=== PATIENT | male | born 1965 | race Caucasian/White ===

== ENCOUNTER 2019-08-26 10:48 | Outpatient (CLI) | payer BC, SELFPAY ==
--- NOTE | ~2019-08-26 | US_ITS ---
EXAMINATION:US venous doppler LE BI INDICATION:Lower extremity swelling and pain TECHNIQUE: Multiple grayscale, color flow and Doppler images of the lower extremity deep venous syste ms were obtained and reviewed. COMPARISON:No prior studies for comparison. FINDINGS: The common femoral, superficial femoral and popliteal veins demonstrate normal respiratory variation, augmentation and compressibility. Color flow is also seen within the posterior tibial, pe roneal, greater saphenous and profunda veins. IMPRESSION: 1: No lower extremity deep venous thrombosis. Reviewed, dictated and finalized at location A.
== END 2019-08-26 10:49 | disposition home or self-care (01) ==
PROVIDERS: PCP Family Medicine; Visit Provider Family Medicine
DX: R22.43 Localized swelling, mass and lump, lower limb, bilateral (principal)
CPT/HCPCS: 93970

== ENCOUNTER 2021-02-26 07:58 | Outpatient (CLI) | payer BC, SELFPAY ==
--- NOTE | 2021-02-26 08:00 | ECG_ITS ---
Measurements Intervals [place] Rate: 46 P: 42 KS: 289 QRS: 13 QRSD: 113 T: 13 QT: 442 QTc: 389 Interpretive Statements SINUS BRADYCARDIA WITH FIRST DEGREE AV BLOCK INCOMPLETE RIGHT BUNDLE BRANCH BLOCK BORDERLINE R WAVE PROGRESSION, ANTERIOR LEADS BASELINE ARTIFACT- I, III, AVR, AVL, AVF ABNORMAL ECG Electronically Signed On 02-26-2021 8:33:23 CDT by Andrew Doss D.O.
[2021-02-26 09:02] LABS: Anion Gap 8 mmol/L (8-16); Blood Urea Nitrogen 24 mg/dL (9-20); Calcium 9.7 mg/dL (8.4-10.2); Carbon Dioxide 30 mmol/L (22-30); Chloride 102 mmol/L (98-107); Estimated Glomerular Filt Rate > 60; Glucose 107 mg/dL (65-110); Potassium 4.2 mmol/L (3.4-5.0); Sodium 140 mmol/L (137-145)
== END 2021-02-26 07:59 | disposition home or self-care (01) ==
PROVIDERS: Anesthesiology; Visit Provider Podiatrist Foot & Ankle Surgery
DX: Z01.818 Encounter for other preprocedural examination (principal); I10 Essential (primary) hypertension; E78.5 Hyperlipidemia, unspecified; E11.9 Type 2 diabetes mellitus without complications; R94.31 Abnormal electrocardiogram [ECG] [EKG]
CPT/HCPCS: 36415; 80048; 93005

== ENCOUNTER 2021-03-01 03:11 | Day surgery (SDC) | payer BC, SELFPAY ==
[2021-02-21 10:11] VITALS: BMI 35.9
--- NOTE | ~2021-03-01 | XR_ITS ---
EXAMINATION: XR surgery orthopedic DATE: 03/01/2021 10:07 INDICATION: Left foot arthrodesis TECHNIQUE: 2 fluoroscopic images of the left forefoot were obtained during procedure performed by Dr. Carrera. Radiologist was not present for the imaging or procedure. The amount of fluoroscopy time u sed during this procedure was 0.6 minutes. COMPARISON: None. FINDINGS: First metatarsophalangeal arthrodesis with dorsal plate and screw fixation which appears chronic in s olidly bridged. Osteotomy at the neck of the second metatarsal with fixation with a pair of screws. E xpected small amount of postoperative gas projects over the second metatarsophalangeal joint space. O steotomy at the head of the fourth proximal phalanx and computed arthrodesis at the fourth proximal i nterphalangeal joint. A metallic fixation device spanning the lucent joint space demonstrates only a small amount of purchase within the remaining portion of the head of the proximal phalanx. Alignment appears near-anatomic. No fracture. IMPRESSION: 1. Fluoroscopy utilized during the procedure and the left forefoot including a likely shortening oste otomy at the neck of the second metatarsal and instrumented arthrodesis at the fourth proximal interp halangeal joint. Correlate with procedure note for further detail. 2. Chronic instrumented arthrodesis with solid osseous fusion at the first metatarsophalangeal joint. Reviewed, dictated and finalized at location A. IMPRESSION: 1. Fluoroscopy utilized during the procedure and the left forefoot including a likely shortening osteotomy at the neck of the second metatarsal and instrument ed arthrodesis at the fourth proximal interphalangeal joint. Correlate with pro cedure note for further detail. 2. Chronic instrumented arthrodesis with solid osseous fusion at the first meta tarsophalangeal joint.
[2021-03-01 07:00] VITALS: BP 117/62; PULSE 48; RESP 16; TEMP 36.3; O2SAT 96
[2021-03-01] MEDS: LACTATED RINGERS 1,000 ML 30 ML IV CONT (07:00)
[2021-03-01 07:33] LABS: Glucose Point of Care 98 mg/dl (65-105)
--- NOTE | 2021-03-01 07:39 | P.PNAN_ITS ---
Anes - Initial Pre Proc Eval Procedure: Operation Date: 03/01/21 08:30 Proposed Procedures p Arthrodesis First Metatarsal Phalangeal Joint Left Foot, Declan Shortening Second Metatarsal Osteotomy Left Foot, Excision Skin Lesion Left Foot - Felix Carrera JR, MD s Hammer Toe Repair Fouth Digit Left Foot - Felix Carrera JR, MD Date/Time: 03/01/21 07:39 Surgeon: Felix Carrera JR, MD Pre Op Diagnosis: Bunion Lt Foot, Hammertoe 4th Toe Lt Patient Data Age: 55 Gender: M Height: 1.93 m Weight: 133.81 kg Allergies Allergy/AdvReac Type Severity Reaction Status Date / Time No Known Allergies Allergy Verified 03/01/21 07:39 Home Medications Medication Instructions Recorded Confirmed Type lisinopril 40 mg PO DAILY 04/04/19 02/21/21 History atorvastatin 10 mg PO DAILY 02/21/21 02/21/21 History diclofenac sodium 75 mg PO BID PRN 02/21/21 03/01/21 History empagliflozin [Jardiance] 25 mg PO DAILY 02/21/21 02/21/21 History gabapentin 300 mg PO BID 02/21/21 02/21/21 History hydrochlorothiazide 12.5 mg PO DAILY 02/21/21 02/21/21 History metformin 500 mg PO DAILY 02/21/21 02/21/21 History sertraline 100 mg PO DAILY 02/21/21 02/21/21 History Laboratory Tests 03/01/21 07:29 POC Capillary Glucose 98 mg/dl mg/dl (65-105) Patient hx anesthesia problems: none Family hx anesthesia problems: none Results Review: All pre-operative results and documents have been reviewed as part of the pre-operative evaluation. [facility] Past Medical History Medical History (Updated 03/01/21 @ 07:40 by Sukhdeep Nicholas MD) Diabetes HTN (hypertension) Obesity KALLIE on CPAP Prostate CA Surgical History Surgical History (Updated 03/01/21 @ 07:40 by Sukhdeep Nicholas MD) H/O prostatectomy History of back surgery Social History Social History Smoking packs per day: 1 Smoking cigarettes per day: 20.0 Years smoked: 20 Smoking pack-years: 20.00 Smoking status: Former smoker Smoking end date: 05/11/12 Alcohol intake: current Alcohol use details: RARE Substance use: never Substance use type: does not use Living arrangements: with family Gender identity (if verbalized by the patient): Male Spiritual care concerns: No Anes - Eval Final PreProcedure Day of Procedure 03/01/21 07:39 Patient weight: obese Heart: regular rate and rhythm Lungs: clear to auscultation Airway: Mallampati scale class II Neurological: alert and oriented Last oral intake: >/= 8 hours ASA classification: III Emergent: no Anesthetic plan: proceed Anesthesia type and monitoring: general LMA and standard monitoring Results Review: All pre-operative results and documents have been reviewed as part of the pre-operative evaluation. Informed Consent: The patient's anesthetic plan and its attendant risks and benefits were discussed with the patient/family/POA. Questions were solicited and answers provided to the satisfaction of the patient/family/POA.
--- NOTE | 2021-03-01 08:02 | WPDHPUPDATE1 ---
History and Physical Update Update Date/Time: 03/01/21 08:02 History and Physical has been reviewed, including an updated exam of the patient. There are NO changes in the patient's condition. Risks, benefits, and alternatives have been discussed and questions answered. Patient agrees to proceed with procedure.
[2021-03-01] MEDS: ceFAZolin 3 GM/D5W 100 ML 100 ML IVPB (08:27)
[2021-03-01] MEDS: LIDOCAINE HCL 2% PF INJ 5 ML VIAL 20 ML INFILTRATE (09:04)
[2021-03-01 10:25] VITALS: BP 113/64; PULSE 46; RESP 16; O2SAT 94
[2021-03-01 10:30] LABS: Glucose Point of Care 121 mg/dl (65-105)
--- NOTE | 2021-03-01 10:30 | W.PM.PROC2 ---
Procedure Note - Detailed Date of Procedure 03/01/21 Pre-op Diagnosis 1. Arthritic bunion deformity left foot 2. Hammertoe deformity 4th digit left foot 3. Metatarsalgia second metatarsal phalangeal joint left foot 4. Painful skin lesion left foot Post-op Diagnosis same Procedure Performed 1. Arthrodesis of the first metatarsal phalangeal joint left foot 2. Hammertoe correction fourth digit left foot 3. Declan shortening 2nd metatarsal osteotomy left foot 4. Excision of skin left foot Surgeon Felix Carrera JR, DPM Anesthesia MAC and local Description of Procedure PROCEDURE IN DETAIL: Under mild sedation, the patient was brought into the operating room, placed on the operating table in supine position. A pneumatic ankle tourniquet was placed about the patient's ipsilateral ankle. Following IV sedation with LMA, a local anesthetic block was obtained about the proximal foot utilizing 20 cc of a 2% Lidocaine plain and 0.5% Marcaine plain. The foot was then scrubbed, prepped, and draped in the usual aseptic manner. An Esmarch bandage was then used to exsanguinate the patient's foot and the pneumatic ankle tourniquet was then inflated. Surgery began in the following manner: Attention was directed to the dorsal aspect of the 1st metatarsophalangeal joint where there was a large subcutaneous prominence noted along the dorsomedial aspect of the joint. The incision was made starting along the central shaft of the 1st metatarsal and extending just proximal to the interphalangeal joint of the hallux. The incision was continued deep down through the subcutaneous tissues using sharp and blunt dissection. All bleeders were cauterized as necessary. At this point, the dissection was continued down to the level of the periosteum and capsular structures overlying the 1st metatarsophalangeal joint. A full length periosteum and capsular incision was made just medial to the extensor hallucis longus tendon. The periosteum and capsular structures were freed from the base of the proximal phalanx as well as the distal 1st metatarsal. At this point, the 1st metatarsophalangeal joint was identified. There was almost complete loss of articular cartilage to the head of the 1st metatarsal as well as the base of the proximal phalanx. There was significant broadening and hypertrophy of the 1st metatarsophalangeal joint along with a large joint mouse atop the joint. Utilizing a sagittal bone saw, the hypertrophied 1st metatarsal was resected dorsally, medially, and laterally. A power bur was used to make sure that there were no rough edges and also to further debride the hypertrophic 1st metatarsal. Next, a rongeur was used to resect all hypertrophic base of the proximal phalanx. At this point, the sagittal saw blade was used to denude the degenerative cartilage from the head of the 1st metatarsal as well as the base of the proximal phalanx with great approximation noted. Next, a 2-0 drill bit was used to further fenestrate the head of the 1st metatarsal as well as the base of the proximal phalanx in order to allow fusion across the 1st metatarsophalangeal joint. Next, a 0.045 inch K-wire was driven from the medial aspect of the base of the proximal phalanx into the head of the 1st metatarsal in order to serve as temporary fixation. A large steel plate was used to make sure that the hallux was in a rectus position both in the sagittal plane as well as the frontal and transverse plane. Excellent position of the hallux was noted. Next, a CrossCHECK plate was placed atop the 1st metatarsophalangeal joint held in position with Peculiar wires. Utilizing standard principles and techniques, the 2 distal drill holes were drilled and two 3.5 mm fully-threaded locking screws were driven from dorsal to plantar holding the distal aspect of the plate intact. At this point, a 3.5mm lag screw was driven from dorsal distal to proximal plantar across the 1st metatarsophalangeal
[2021-03-01 10:55] VITALS: BP 113/53; PULSE 38; RESP 16; O2SAT 98
[2021-03-01 11:45] VITALS: BP 132/74; PULSE 44; RESP 16
[2021-03-01] MEDS: oxyCODONE HCL (*CRX) 5 MG TAB IR PO (12:12)
[2021-03-01 12:43] VITALS: BP 134/73; PULSE 44; RESP 16
== END 2021-03-01 12:30 | disposition home or self-care (01) ==
PROVIDERS: Visit Provider Podiatrist Foot & Ankle Surgery
PROC: (CPT 28750; principal; 2021-03-01 08:30)
PROC: (CPT 28285; 2021-03-01 08:30)
DX: M21.612 Bunion of left foot (principal); M20.42 Other hammer toe(s) (acquired), left foot; M77.42 Metatarsalgia, left foot; D22.72 Melanocytic nevi of left lower limb, including hip; E11.9 Type 2 diabetes mellitus without complications; I10 Essential (primary) hypertension; G47.33 Obstructive sleep apnea (adult) (pediatric); Z79.84 Long term (current) use of oral hypoglycemic drugs; Z85.46 Personal history of malignant neoplasm of prostate; E66.9 Obesity, unspecified; Z68.35 Body mass index [BMI] 35.0-35.9, adult; Z87.891 Personal history of nicotine dependence
CPT/HCPCS: 28285; 28308; 28755; 11420; 36415; 80048; 82948; 88305; 93005; A9270; C1713; J0690; J2704; J3010; J7120

== ENCOUNTER 2021-07-03 09:24 | Outpatient (CLI) | payer BC, SELFPAY ==
[2021-07-03 10:04] LABS: Anion Gap 5 mmol/L (8-16); Blood Urea Nitrogen 19 mg/dL (9-20); Calcium 9.6 mg/dL (8.4-10.2); Carbon Dioxide 30 mmol/L (22-30); Chloride 102 mmol/L (98-107); Estimated Glomerular Filt Rate > 60; Glucose 94 mg/dL (65-110); Sodium 137 mmol/L (137-145)
== END 2021-07-03 09:25 | disposition home or self-care (01) ==
LOC: ANHSURGERY 09:27
PROVIDERS: Anesthesiology; Visit Provider Podiatrist Foot & Ankle Surgery
DX: E11.9 Type 2 diabetes mellitus without complications (principal); Z01.818 Encounter for other preprocedural examination
CPT/HCPCS: 36415; 80048

== ENCOUNTER 2021-07-05 01:01 | Day surgery (SDC) | payer BC, SELFPAY ==
[2021-07-01 11:10] VITALS: BMI 36.5
--- NOTE | 2021-07-01 11:19 | PC.NURSE ---
Report to the Outpatient Waiting Room, entrance under the green pavilion located off [facility], at time 11:00 on date 07/05/21. OR Time: 1:00. - You and your visitor will be asked a series of questions to screen for COVID 19 for your protection. - A mask is required within the hospital. One visitor will be allowed to accompany the patient into the hospital. Patients visitor will be instructed to remain with patient at all times or leave the building. We will allow the visitor to come back to the postoperative area when patient is ready. Preoperative COVID Testing Requirements: No COVID Test needed if: (proof is required; if not received patient will have Rapid Test prior to entry) - Patient has received COVID Vaccine at least 14 days prior to procedure date or - Patient has positive COVID test result within last 90 days of surgery date. COVID Test needed if above criteria is not met Patients may have clear liquids (water, carbonated beverages, clear teas, apple juice) until 3 hours prior to surgery (10:00) with a maximum of 20 ounces. - No food from midnight until time of surgery Take the following medications with a SIP of water the morning of surgery: GABAPENTIN, SERTRALINE Medications to discontinue per physician: DICLOFENAC Date to take last dose: PER DR. FONTAINE Please no make-up, nail syriac, hairspray, perfume, deodorant, or body powder the day of surgery. No jewelry (including any body piercings) or valuables the day of surgery, leave them at home. Please take a shower or bath the night before, or the morning of, surgery with an antibacterial soap. Wear comfortable, loose fitting clothing. - Jewelry must be removed prior to entering the operating room. Rings and piercings that are not removed may be cut off. - The hospital will not accept responsibility for valuables. - Please leave all valuables, including medications, at home the day of surgery. If you are going home after surgery, a licensed charter and tour bus driver must drive you home. - NO public transportation without another adult. - We recommend that an adult stay with you for 24 hours following discharge. - We also recommend that you do not drive, make important decision, drink alcoholic beverages, or take any drugs that were not prescribed by your health care provider for at least 24 hours after your discharge time. Follow any additional instructions given to you from your surgeon. Telephone instructions given to BRYSON LANIER and asked if any additional questions and then verbalized understanding. Patient advised to call surgeon office or pre surgery nurse liaison [phone] if any additional questions.
--- NOTE | ~2021-07-05 | XR_ITS ---
EXAMINATION: XR surgery orthopedic DATE: 07/05/2021 13:39 INDICATION: Removal of painful instrumentation from the left foot TECHNIQUE: 2 fluoroscopic images of the left forefoot were obtained during procedure performed by Dr. Carrera. Radiologist was not present for the imaging or procedure. The amount of fluoroscopy time u sed during this procedure was 0.2 minutes. COMPARISON: 03/01/2021 FINDINGS: Again seen is a solidly fused left first metatarsophalangeal arthrodesis with dorsal plate and screw fixation. Increased callus formation at the neck of the second metatarsal consistent with healing of a shortening osteotomy with screw fixation. Interval osteotomy at the head of the third proximal phal anx. There also has been revision of an attempted fourth proximal interphalangeal joint arthrodesis w ith removal of the prior fixation device and placement of a new bidirectional screw spanning the stil l lucent joint space. There appears to been some loss of bone stock at the neck of the fourth proxima l phalanx which could represent either progressive osteolysis or revision osteotomy. No fracture. IMPRESSION: 1. Fluoroscopy utilized during orthopedic procedure at the left forefoot as detailed above. See proce dure note for further detail. Reviewed, dictated and finalized at location A. [employer] IMPRESSION: 1. Fluoroscopy utilized during orthopedic procedure at the left forefoot as det tamica above. See procedure note for further detail.
[2021-07-05] MEDS: LACTATED RINGERS 1,000 ML 30 ML IV CONT (12:00)
[2021-07-05] MEDS: ceFAZolin 3 GM/D5W 100 ML 100 ML IVPB (12:03)
[2021-07-05 12:26] LABS: Glucose Point of Care 95 mg/dl (65-105)
--- NOTE | 2021-07-05 12:42 | WPDHPUPDATE1 ---
History and Physical Update Update Date/Time: 07/05/21 12:42 History and Physical has been reviewed, including an updated exam of the patient. There are NO changes in the patient's condition. Risks, benefits, and alternatives have been discussed and questions answered. Patient agrees to proceed with procedure.
--- NOTE | 2021-07-05 12:47 | WPDANESEPPF ---
Anes - Initial Pre Proc Eval Procedure: Operation Date: 07/05/21 13:00 Proposed Procedures p Removal Painful Hardware Left Foot - Felix Carrera JR, MD s Arthroplasty Third Digit Left Foot - Felix Carrera JR, MD Date/Time: 07/05/21 12:47 Surgeon: Felix Carrera JR, MD Pre Op Diagnosis: painful hardware left foot, Patient Data Age: 55 Gender: M Height: 1.93 m Weight: 136.08 kg Allergies Allergy/AdvReac Type Severity Reaction Status Date / Time No Known Allergies Allergy Verified 07/05/21 12:46 Home Medications Medication Instructions Recorded Confirmed Type lisinopril 40 mg PO DAILY 04/04/19 07/05/21 History atorvastatin 10 mg PO DAILY 02/21/21 07/05/21 History diclofenac sodium 75 mg PO BID PRN 02/21/21 07/05/21 History gabapentin 300 mg PO BID 02/21/21 07/05/21 History hydrochlorothiazide 12.5 mg PO DAILY 02/21/21 07/05/21 History metformin 500 mg PO DAILY 02/21/21 07/05/21 History sertraline 100 mg PO DAILY 02/21/21 07/05/21 History semaglutide [Rybelsus] 7 mg PO DAILY 07/01/21 07/05/21 History Laboratory Tests 07/05/21 12:24 POC Capillary Glucose 95 mg/dl mg/dl (65-105) Patient hx anesthesia problems: none Family hx anesthesia problems: none Results Review: All pre-operative results and documents have been reviewed as part of the pre-operative evaluation. [facility] Past Medical History Medical History Diabetes HTN (hypertension) Obesity KALLIE on CPAP Prostate CA Surgical History Surgical History H/O prostatectomy History of back surgery Social History Social History Smoking packs per day: 1 Smoking cigarettes per day: 20.0 Years smoked: 20 Smoking pack-years: 20.00 Smoking status: Former smoker Tobacco type: cigarettes Smoking end date: 05/11/12 Alcohol intake: current Drinks per week: 2 Alcohol use details: RARE Substance use: never Substance use type: does not use Living arrangements: with family Gender identity (if verbalized by the patient): Male Sexual Orientation (if Verbalized by the Patient): Straight or Heterosexual Spiritual care concerns: No Anes - Eval Final PreProcedure Day of Procedure 07/05/21 12:47 Patient weight: obese Heart: regular rate and rhythm Lungs: clear to auscultation Airway: Mallampati scale class II Neurological: alert and oriented Last oral intake: >/= 8 hours ASA classification: III Emergent: no Anesthetic plan: proceed Anesthesia type and monitoring: general GIVS and standard monitoring Results Review: All pre-operative results and documents have been reviewed as part of the pre-operative evaluation. Informed Consent: The patient's anesthetic plan and its attendant risks and benefits were discussed with the patient/family/POA. Questions were solicited and answers provided to the satisfaction of the patient/family/POA.
[2021-07-05 12:52] VITALS: BP 132/69; PULSE 57; RESP 16; TEMP 36.6; O2SAT 99
--- NOTE | 2021-07-05 12:54 | WPDHPUPDATE1 ---
History and Physical Update Update Date/Time: 07/05/21 12:54 1. Removal of painful hardware left foot 2. Arthroplasty of the 3rd digit left foot
[2021-07-05] MEDS: BUPIVACAINE HCL 0.5% PF 30 ML VIAL 10 ML INFILTRATE (13:08)
[2021-07-05] MEDS: LIDOCAINE HCL 2% PF INJ 5 ML VIAL 10 ML INFILTRATE (13:08)
[2021-07-05 13:45] VITALS: BP 127/74; PULSE 50; RESP 15; O2SAT 92
--- NOTE | 2021-07-05 14:11 | W.PM.PROC2 ---
Procedure Note - Detailed Date of Procedure 07/05/21 Pre-op Diagnosis 1. Painful hardware left foot 2. Hammertoe 3rd digit left foot Post-op Diagnosis same Procedure Performed 1. Removal of painful hardware left foot 2. Arthroplasty 3rd digit left foot Surgeon Felix Carrera JR, MD Anesthesia MAC and local Indications Painful hardware left foot and painful 3rd digit left foot Description of Procedure Description of Procedure Under mild sedation, the patient was brought to the operating room, placed on the operating table in the supine position. A pneumatic ankle tourniquet was placed about the patient's ankle. Following monitored anesthesia care and a local anesthetic block witha one to one mixture of 2% Lidocaine plain and 0.5% Marcaine plain, the foot was then scrubbed, prepped, and draped in the usual aseptic manner. An Esmarch bandage was then used to examine the patient's foot and pneumatic ankle tourniquet was then inflated. Surgery began in the following manner. Attention was directed to the dorsal aspect of the left hallux. Utilzing fluoroscopy the loose screw was identified. A small one centimeter incision was made overlying the screw head. The screws was removed in toto and placed on the back table to be discarded. A post screw removal fluoroscopic image was taking to document that the screw was removed. The subcutaneous tissue was closed with 4-0 Vicryl. The skin was reapproximated and coapted with 4-0 Monocryl in running subcuticular suture fashion technique. Attention was directed to the third digit of the foot where a 2cm incision was made over the distal interphalangeal joint. A transverse tenotomy was created dorsal to the proximal interphalangeal joint, next the head of the proximal phalanx was freed of its capsular and tendinous structures and resected with an oscillating saw blade. I reapproximated the extensor tendon over the resected head of the proximal phalanx of the digit with 4.0 Vicryl. I reapproximated the subcutaneous structures with 4.0 Vicryl and the skin with 4-0 Monocryl in running subcuticular suture technique. Upon completion of the procedure, the incision was dressed with 1/4 steri strips, Adaptic, 4 x 4's, Kerlix, and Coban. The pneumatic ankle tourniquet was then deflated and a prompt hyperemic response noted to all digits of the foot. A surgical shoe was then applied. The patient did very well with the procedure and the anesthesia. The patient was transferred to the recovery room with vital signs stable and vascular status intact to all toes of the affected foot. Following a period of postoperative monitoring, the patient will be discharged home on the following written and oral postoperative instructions: 1. Keep the dressing clean, dry, and intact. Use a cast protector bag with showers. 2. The patient should use a surgical shoe for ambulation postoperatively. 3. The patient should be on bedrest with bathroom privileges and elevate the affected foot when at rest. 4. The patient to contact Dr. Carrera for all postop care and if any problems arise. 5. Prescriptions were written for Percocet 5/325 dispensed 40 to be taken 1 p.o. q.4 to 6 hours as needed for severe pain. 6. Take one Aspirin 325mg every 24hours for two weeks post operatively. Estimated Blood Loss -1.0
[2021-07-05 14:15] VITALS: BP 136/88; PULSE 47; RESP 15; O2SAT 95
[2021-07-05] MEDS: oxyCODONE HCL (*CRX) 5 MG TAB IR PO (14:28)
[2021-07-05 14:42] VITALS: BP 149/83; PULSE 55; RESP 15
[2021-07-05 15:10] VITALS: BP 135/66; PULSE 51; RESP 17
--- NOTE | 2021-07-05 15:17 | SUR.PHASEII ---
1515- Dr Carrera here. Spoke with pt. Gave a paper prescription for Percocet.
== END 2021-07-05 15:19 | disposition home or self-care (01) ==
PROVIDERS: Visit Provider Podiatrist Foot & Ankle Surgery
PROC: (CPT 28285; principal; 2021-07-05 13:00)
PROC: (CPT 28285; 2021-07-05 13:00)
DX: T84.84XA Pain due to internal orthopedic prosthetic devices, implants and grafts, initial encounter (principal); Y83.8 Other surgical procedures as the cause of abnormal reaction of the patient, or of later complication, without mention of misadventure at the time of the procedure; M20.42 Other hammer toe(s) (acquired), left foot; E11.9 Type 2 diabetes mellitus without complications; I10 Essential (primary) hypertension; G47.33 Obstructive sleep apnea (adult) (pediatric); Z85.46 Personal history of malignant neoplasm of prostate; E66.9 Obesity, unspecified; Z68.35 Body mass index [BMI] 35.0-35.9, adult; Z79.84 Long term (current) use of oral hypoglycemic drugs; Z87.891 Personal history of nicotine dependence
CPT/HCPCS: 28285; 20680; 36415; 80048; 82948; A9270; J0690; J2250; J2405; J2704; J3010; J7120

== ENCOUNTER 2023-03-16 11:32 | Emergency (ER) | payer OTHER, SELFPAY ==
[2023-03-16 11:38] VITALS: BP 116/74; PULSE 58; RESP 16; TEMP 36.7; O2SAT 99
--- NOTE | 2023-03-16 12:13 | ED.GENADULT ---
HPI - General Adult General Chief complaint: Neck Pain/Injury Stated complaint: Neck pain Time Seen by Provider: 03/16/23 12:10 Source: patient, RN notes reviewed and old records reviewed Mode of arrival: ambulatory Limitations: no limitations History of Present Illness HPI narrative: 57-year-old male presents to the [facility] with lateral neck pain, both right and left. Has been going on for 2 weeks. Patient states he has tried creams, patches, hot cold packs. States it is more of a pulling sensation, not a sharp pain. No midline tenderness. Denies any injury. Is able to move head up and down states he has pain from side to side. Pain radiates into the trapezius muscle bilateral. No midline tenderness. No numbness or tingling in extremities. Denies any fevers. Walks with a normal gait. No loss retention of bowel or bladder. Patient is requesting a pain shot. States when [facility]. Attempted to find it will kind of shot he gets, patient unsure. Works as a business investor. Onset (ago): week(s) (2) Treatments prior to arrival: cold therapy, heat therapy and other (Creams and patches) Related Data Home Medications Medication Instructions Recorded Confirmed lisinopril 40 mg tablet 40 mg PO DAILY 04/04/19 03/16/23 atorvastatin 10 mg tablet 10 mg PO DAILY 02/21/21 03/16/23 diclofenac sodium 75 mg 75 mg PO BID PRN Pain 02/21/21 03/16/23 tablet,delayed release hydrochlorothiazide 12.5 mg tablet 12.5 mg PO DAILY 02/21/21 03/16/23 metformin 500 mg tablet 500 mg PO DAILY 02/21/21 03/16/23 sertraline 100 mg tablet 100 mg PO DAILY 02/21/21 03/16/23 Allergies Allergy/AdvReac Type Severity Reaction Status Date / Time No Known Allergies Allergy Verified 03/16/23 11:40 Review of Systems Review of Systems: All systems reviewed & are unremarkable except as noted in HPI and below Constitutional: Constitutional: Reports no additional constitutional complaints Eyes: Eyes: Reports no additional eye complaints ENT: Reports system reviewed and no additional complaints, except as documented Cardiovascular: Cardiovascular: Reports no additional cardiovascular complaints, Denies chest pain and Denies dyspnea Respiratory: Respiratory: Reports no additional respiratory complaints, Denies chest congestion, Denies cough and Denies dyspnea Gastrointestinal: Gastrointestinal: Reports no additional gastrointestinal complaints, Denies abdominal pain, Denies nausea and Denies vomiting Musculoskeletal: Musculoskeletal: Reports as per HPI Integumentary/Breasts: Skin/Breast: Reports system reviewed and no additional complaints, except as docu Neurologic: Reports system reviewed and no additional complaints, except as documented Psychiatric: Psychiatric: Reports no additional psychiatric complaints Allergic/Immunologic: Allergic/Immunologic: Reports no additional allergic/immunologic complaints PMFSH Past Medical History Medical History Diabetes HTN (hypertension) Obesity KALLIE on CPAP Prostate CA Surgical History Surgical History H/O prostatectomy History of back surgery Social History Social History Smoking packs per day: 1 Smoking cigarettes per day: 20.0 Years smoked: 15 Smoking pack-years: 15.00 Smoking status: Former smoker Tobacco type: cigarettes Smoking end date: 05/11/15 Alcohol intake: current Drinks per week: 2 Alcohol use details: RARE Substance use: never Substance use type: does not use Living arrangements: with family Gender identity (if verbalized by the patient): Male Sexual Orientation (if Verbalized by the Patient): Straight or Heterosexual Spiritual care concerns: No Comments At the time of my signature, I reviewed and agree with the nursing past medical, surgical,
== END 2023-03-16 12:26 | disposition home or self-care (01) ==
PROVIDERS: Emergency Provider Nurse Practitioner; PCP Hospitalist
DX: S16.1XXA Strain of muscle, fascia and tendon at neck level, initial encounter (principal); X58.XXXA Exposure to other specified factors, initial encounter; Z79.84 Long term (current) use of oral hypoglycemic drugs; E11.9 Type 2 diabetes mellitus without complications; I10 Essential (primary) hypertension; Z47.33 Aftercare following explantation of knee joint prosthesis; E66.9 Obesity, unspecified; Z68.37 Body mass index [BMI] 37.0-37.9, adult; Z85.46 Personal history of malignant neoplasm of prostate; Z90.79 Acquired absence of other genital organ(s); Z87.891 Personal history of nicotine dependence
CPT/HCPCS: 99213; G0463

== ENCOUNTER 2024-08-12 19:38 | Observation (INO) | payer OTHER, SELFPAY ==
--- NOTE | ~2024-08-12 | CT_ITS ---
CLINICAL INDICATION: Personal history of prostate cancer with lower back pain and left lower quadrant pain COMPARISON: None. TECHNIQUE: Multiple contiguous axial images of the abdomen and pelvis were performed following the ad ministration of with 100 mL Omnipaque-350 intravenous contrast The dose-length product (DLP) was 1825.13 mGy-cm. Automated exposure control and iterative reconstruction technique were employed. FINDINGS/OBSERVATIONS: Visualized lower thorax: The bilateral lung bases are clear. The heart is enlarged, without pericardial effusion. Small hiatal hernia is present. Liver: The liver demonstrates homogeneous enhancement and is not enlarged. Gallbladder and biliary system: The gallbladder is only minimally distended, and otherwise unremarkable. Pancreas: The pancreas enhances homogeneously without ductal dilatation. Spleen: The spleen enhances homogeneously and is not enlarged. Kidneys: The bilateral kidneys enhance symmetrically without hydronephrosis or renal calculi. Adrenal glands: Unremarkable. Gastrointestinal tract: Colonic diverticulosis without surrounding inflammatory change. Appendix: The air-filled appendix is of normal caliber (axial series, images 110 through 129). Vasculature: Unremarkable. Lymph nodes: No pathologically enlarged or morphologically suspicious lymph nodes within the retroperitoneum or at the root of the mesentery. Pelvic structures: The bladder is distended, and otherwise unremarkable. The prostate gland is not enlarged. Body wall and musculoskeletal: Nonobstructing fat and bowel containing umbilical and supraumbilical hernias. No lytic or blastic lesions within the visualized osseous structures. There are bridging endplate osteophytes at multiple levels in the spine, consistent with diffuse idio pathic skeletal hyperostosis (DISH). Only trace degenerative disease at the level of L5/S1 with disc space narrowing and endplate sclerosi s. No acute or subacute fractures are present. IMPRESSION: Degenerative disease within the lower lumbar spine without lytic or blastic lesions within the visual ized osseous structures. No acute findings within the abdomen or pelvis, as detailed above. Reviewed, dictated and finalized at location A. IMPRESSION: Degenerative disease within the lower lumbar spine without lytic or blastic les ions within the visualized osseous structures. No acute findings within the abdomen or pelvis, as detailed above.
--- NOTE | ~2024-08-12 | MR_ITS ---
EXAMINATION: MR lumbar spine wo/w con DATE: 08/13/2024 12:40 INDICATION: Intractable low back pain. TECHNIQUE: Magnetic resonance imaging (MRI) of the lumbar spine was performed without intravenous con trast. Sequences included sagittal T2-weighted FSE, sagittal T2-weighted FS FSE, sagittal T1-weighted FSE, and axial T2-weighted FSE. COMPARISON: None FINDINGS: 6 degrees lumbar levocurvature. Sagittal alignment is normal. Vertebral body heights are normal. T1 h yperintense hemangioma at T12. Minimal fibrovascular degenerative endplate changes along superior end plate of T12, the posterior inferior endplates of L2 and L3 and the anterior superior endplate of L5. Marrow signal is otherwise unremarkable. Disc desiccation and mild disc height loss at L3-L4 and L5- S1 with minimal disc height loss at L2-L3 and L4-L5. There are annular fissures at each of these leve ls. The conus medullaris terminates at L1. There is normal signal in the caudal spinal cord. No abnor mal enhancing lesions identified. Paravertebral soft tissues are unremarkable. The following disc lev els are specifically discussed: T12-L1: The disc does not extend beyond the endplate margin. There is mild right and moderate left fa cet joint osteoarthritis. There is no neural foraminal stenosis. There is no central canal stenosis. L1-L2: The disc does not extend beyond the endplate margin. There is mild to moderate bilateral facet joint osteoarthritis. There is no neural foraminal stenosis. There is no central canal stenosis. L2-L3: Disc is bulging. There is mild hypertrophy of the ligamentum flavum. There is mild to moderat e bilateral facet joint osteoarthritis. There is mild bilateral neural foraminal stenosis. There is m ild central canal stenosis. L3-L4: Disc is bulging. There is mild hypertrophy of the ligamentum flavum. There is moderate bilater al facet joint osteoarthritis. There is mild to moderate bilateral neural foraminal stenosis. There i s mild central canal stenosis. L4-L5: Disc is bulging. There is mild is hypertrophy of the ligamentum flavum. There is moderate left and severe right facet joint osteoarthritis. There is mild to moderate bilateral neural foraminal st enosis. There is mild central canal stenosis. L5-S1: Disc is bulging. There is mild hypertrophy of the left ligamentum flavum with postoperative ch jayna of prior right hemilaminotomy. There is severe bilateral facet joint osteoarthritis. There is mi ld to moderate left and moderate right neural foraminal stenosis. There is no central canal stenosis. IMPRESSION: 1. Mild lumbar spondylosis change of prior right hemilaminotomy at L5-S1. Reviewed, dictated and finalized at location A.
--- OUTSIDE RECORDS SUMMARY | 2024-08-12 19:40 | XMS_ITS | Encounter Summary ---
Author Organization [facility] Healthcare Address [address] [place] [address] Care Team Providers Care Manager Installation Name Role Phone Roque Bhandari MD, [place] Manuel Moseley Primary Care Provide r Reason for Referral * Consultation (Routine) - Pending Review Specialty Diagnoses / Procedures Referred By Contac t Referred To Contact Pain Management Diagnoses Chronic bilateral low back pain without sciatica [place] Manuel Nevarez Jr., MD [address] [place] [id number] Phone: tel: fax: Terence Bush MD [address] [place] [address] Phone: tel: fax: Referral ID Status Reason Start Date Expiration Date Visits Requested Visits Authorized [id number] Pending Review Specialty Services Required 08/12/2024 09/11/2025 1 1 Question Answer Please select the performing region: External Order [171] To loc/pos [facility] [[id number]] To provider: TERENCE BUSH [[id number]] # of visits: 1 Reason for Visit * Reason Onset Date Comments Recommendation Request 08/12/2024 Encounter Details Date Type Department Care Team ([facility] st Contact Info) Description 08/12/2024 Telephone [facility] Primary Care [address] [place] [phone] [place] Manuel Nevarez Jr., MD [address] [place] [id number] Recommendation Request Social History Tobacco Use Types Packs/Day Years Used Date Smoking Tobacco: Former Smokeless Tobacco: Never AUDIT-C Answer Date Recorded Q1: How often do you have a drink containing alc ohol? Monthly or less 02/12/2024 Q2: How many drinks containi ng alcohol do you have on a typical day when you are drinking? 1 or 2 02/12/2024 Q3: How often do you have si x or more drinks on one occasion? Never 02/12/2024 PHQ-2 Answer Date Recorded PHQ-2 Total Score (If total score is 3 or more points, staff should administer the PHQ-9) 0 03/23/2024 PHQ-9 Answer Date Recorded PHQ-9 Total Score 7 09/23/2023 Personal Safety Answer Date Recorded Have you ever been in or are you currently in a harmful physical or emotional relationship or is someone making you feel afraid or unsafe? Denies 02/15/2024 Sex and Gender Information Value Date Recorded Sex Assigned at Not on file Legal Sex Male 6:34 AM [employer] Gender Identity Not on file Sexual Orientation Not on file documented as of this encounter Miscellaneous Notes * Telephone Encounter - Lani Talley MA - 08/12/2024 4:22 PM CDT Pain management referral placed patient notified * Telephone Encounter - Sarhai Almazan - 08/12/2024 2:37 PM CDT Recommendation Request Note: This request is for a specialty recommendation, not an insurance referral. Specialty: pain management Why does the patient want to go to this specialist? Back pain Additional Comments/Concerns: Patient states he has talked to Dr. Nevarez about pain before. He said he wants to go to one in [place], but couldn't give me any information on it. Does message need to be routed? Yes-Action Needed documented in this encounter Plan of Treatment Scheduled Referrals Name Type Priority Associated Diagnoses Order Schedule Ambulatory referral to Pain Management Outpatient Referral Routine Chronic bilateral low back pain without sciatica Expected: 08/12/2024 (Approximate), Expires: 08/12/2025 documented as of this encounter Visit Diagnoses Diagnosis Chronic bilateral low back pain without sciatica- Primary documented in this encounter Care Teams Manager Installation Relationship Specialty Start Date End Date [place] Manuel Nevarez Jr., MD [address] [place] [id number] PCP - General Internal Medicine 02/04/21 documented as of this encounter
--- OUTSIDE RECORDS SUMMARY | 2024-08-12 19:40 | XMS_ITS ---
Author Organization [facility], Address [address] [facility] [address] [place] [address] Care Team Providers Care Phys Asst Name Role Phone [place] Manuel Nevarez Primary Care Provider Unavailab Radames Alexander Unavailable [phone] RESULTS Component Value Reference Range Notes Thoracic and Lumbar MRI with out contrast Reviewed date:05/03/2024 08:31:30 AM Interpretation:completed Performing Lab: Notes/Report: completed REASON FOR VISIT next steps Encounters Encounter Location Date Provider Diagnosis [facility] [address] [facility] [address] [place] [address] 04/28/2024 Radames Milian Other low back pain M54.59 and Thoracic back pain M54.6 ASSESSMENTS Encounter Date Diagnosis Assessment Notes Treatment Notes Treatment Clinical Notes 04/28/2024 Other low back pain (ICD-10 - M54.59) 04/28/2024 Thoracic back pain (ICD-10 - M54.6) PLAN OF TREATMENT No Information
--- OUTSIDE RECORDS SUMMARY | 2024-08-12 19:41 | XMS_ITS | Data Portability ---
Author Organization [place] - [facility] [employer], Main Office Address [address] [place] [address] Care Team Providers Care Cosmetology Instructor Name Role Phone CARLOS EPSTEIN Primary Care Provider CARLOS EPSTEIN Referring Provider Assessment Encounter Date Assessment Date Assessment LastModified by Organization Details LastModified Time 08/14/2022 08/14/2022 Patient returns shoulder pain right. He presents with an MRI that shows a substantial tear about a quarter-sized. I think that he needs to have this fixed and sooner would be better than later. I did caution if he waits too long that it might be repairable. He can not hardly get his arm up to the horizontal. He is going to look for some time to do his surgery we discussed this risks benefits limitations and alternatives in the meantime he wanted another shot this was done with 20 mg Kenalog 4 cc 1% lidocaine. For his arthritic left knee he would like an injection and this has helped in the past he has got some degenerative changes and wearing the x-ray has some catching as well. This was done 20 mg Kenalog 4 cc 1% lidocaine. irvin Not available 08/14/2022 14:49:17 10/07/2022 10/07/2022 Patient has righ t shoulder pain due to rotator cuff tendon tear and impingement. He also has moderately severe primary osteoarthritis in both knees left knees feeling good today he would like the right knee injected. Therefore under sterile conditions I injected the patient's right shoulder subacromial space and the patient's right knee joint in the office with 4 cc 0.5% ropivacaine and 20 mg of Kenalog each. The patient tolerated procedure well. I will see him back as needed we talked about getting his shoulder fixed sooner than later to avoid worsening rotator cuff tendon tearing. He is going to consider shoulder surgery for later this year he will call us when he is ready he voiced understanding and agrees above plan. Not available 10/07/2022 16:59:25 01/01/2023 01/01/2023 The patient has moderately severe primary osteoarthritis both knees today the left knee is bothering him. He also has rotator cuff tendon tear right shoulder which is near full-thickness he has impingement and tendinitis. At his request under sterile conditions I injected the patient's right shoulder subacromial space and left knee joint in the office with 4 cc 0.5% ropivacaine and 20 mg of Kenalog each. The patient tolerated procedure well. I will see him back as needed. We did talk about the fact that if he lets his rotator cuff tendon tear go too long it could develop into a full thickness very large tear and that he should consider surgical intervention probably sooner than much later. He voiced understanding he is going to think about it he will call for any further problems difficulties or questions. Not available 01/01/2023 15:33:23 03/20/2023 03/20/2023 Patient has recent right knee pain due to mild primary osteoarthritis. He does have some mild narrowing symmetric in nature medially and laterally as well as the patellofemoral articulation. The left knee looks much worse than the right however his left knee feels good after previous treatment he would like to try a shot of cortisone in the right knee today. Therefore under sterile conditions I injected the patient's right knee joint in the office with 4 cc 0.5% bupivacaine and 20 mg of Kenalog. Patient tolerated the procedure well. He will continue with his anti-inflammatory medication if his symptoms worsen or change he is instructed to call. Patient also has some chronic issues with his right shoulder however he is not having too much pain today I told him we really should not do a shot of cortisone particular if he is not hurting he has chronic near full-thickness tearing of the rotator cuff tendon I have advised him multiple cortisone injections may weaken the tendon to the point of rupture or if he does decide to proceed with surgery he has a higher risk of failure of the surgical repair. For now we will take a wait and see approach I offered him formal physical therapy and states he has done it before he declined. We will see him back as needed for this he voiced understanding agrees above plan call for any further problems difficulties or questions. Not available 03/20/2023 15:06:12 Plan of Treatment Reminders Order Date Submit Date Provider Last Modified By Organization Details Last Modified Time Details Appointments None recorded. Lab None recorded. Referral None recorded. Procedures injection/a spiration joint/bursa (PROC) 2022 023 [email or web address] In-Office Order, Internal Use Only DO Not Attach Compendium DO Not Attach Compendium, Do Not Delete/merge, [id number] 3 14:19:33 injection/a spiration joint/bursa (PROC) - in office procedure, administere d by provider 2022 023 [email or web address] In-Office Order, Internal Use Only DO Not Attach Compendium DO Not Attach Compendium, Do Not Delete/merge, [id number] 3 15:10:11 injection/a spiration joint/bursa (PROC) - in office procedure, administere d by provider 2022 023 [email or web address] In-Office Order, Internal Use Only DO Not Attach Compendium DO Not Attach Compendium, Do Not Delete/merge, [id number] 3 15:10:11 injection/a spiration joint/bursa (PROC) - in office procedure, administere d by provider 2022 023 [email or web address] In-Office Order, Internal Use Only DO Not Attach Compendium DO Not Attach Compendium, Do Not Delete/merge, [id number] 3 14:47:34 injection/a spiration joint/bursa (PROC) - in office procedure, administere d by provider 2022 023 [email or web address] In-Office Order, Internal Use Only DO Not Attach Compendium DO Not Attach Compendium, Do Not Delete/merge, [id number] 3 14:47:34 injection/a spiration joint/bursa (PROC) - in office procedure, administere d by provider 2022 023 [email or web address] In-Office Order, Internal Use Only DO Not Attach Compendium DO Not Attach Compendium, Do Not Delete/merge, [id number] 3 14:23:45 injection/a spiration joint/bursa (PROC) - in office procedure, administere d by provider 2022 023 [email or web address] In-Office Order, Internal Use Only DO Not Attach Compendium DO Not Attach Compendium, Do Not Delete/merge, [id number] 3 14:14:08 Surgeries None recorded. Imaging XR, knee 2022 023 [email or web address] [facility] [place], [address], [place], [address], 3 15:16:18 Medication Orders bupivacaine HCl 0.5 % (5 mg/mL) injection solution 2022 023 [facility], [address], [place], [phone], 3 15:16:18 Kenalog 10 mg/mL suspension for injection 2022 023 [email or web address] [facility], [address], [place], [id number], 3 15:16:18 Kenalog 10 mg/mL suspension for injection 2022 023 [facility], [address] [place], [address], 3 15:43:03 ropivacaine (PF) 5 mg/mL (0.5 %) injection solution 2022 023 [email or web address] [facility], [address] [place], [address], 3 15:43:03 Kenalog 10 mg/mL suspension for injection 2022 023 [facility], [address] [place] [address], [address], 3 15:43:03 ropivacaine (PF) 5 mg/mL (0.5 %) injection solution 2022 023 [email or web address] [facility], [address] [place] [address], [address], 3 15:43:03 Kenalog 10 mg/mL suspension for injection 2022 023 [place] [address] [facility], [address] [place] [address], [address], 3 16:05:45 ropivacaine (PF) 5 mg/mL (0.5 %) injection solution 2022 023 [place] [address] [facility], [address] [place] [address], [address], 3 16:05:45 Kenalog 10 mg/mL suspension for injection 2022 023 [place] [address] [facility], [address] [place] [address], [address], 3 16:05:45 ropivacaine (PF) 5 mg/mL (0.5 %) injection solution 2022 023 [place] [address] [facility], [address] [place] [address], [address], 3 16:05:45 Kenalog 10 mg/mL suspension for injection 2022 023 [address] 158 [facility], [address] [place] [address], [address], 3 14:46:46 ropivacaine (PF) 5 mg/mL (0.5 %) injection solution 2022 023 [address] 158 [facility], [address] [place] [address], [address], 3 14:46:46 Kenalog 10 mg/mL suspension for injection [address], [address] [place], [address], 3 14:19:05 ropivacaine (PF) 5 mg/mL (0.5 %) injection solution 2022 023 [facility] 158 [facility], [address] [place], [address], 3 14:19:05 Patient TargetsNo targets recorded. Patient InstructionsNo instructions recorded. Reason for Referral None Reported. Results Created Date Observation Date Name Description Value Unit Range Abnormal Flag Note LastModifiedBy Organization Detail LastModifiedTime 05/20/19 23 XR, erin rainey, 2 or more view No observ ation record ed. [id number] [facility] [place] [address], [place], [address], 07/09/2022 01:25:44 08/14/19 23 MRI, erin rainey, w/o contr ast [facility] [address] [address] Patien t Name: BRYSON LANIER Access ion #: [id number] Sex: M : 1965 Locati on: IND Attend ing Physic melo: Soila urbina Physic melo: JOSE STEPHENSON Exam Date: 08/14/19 8:14 AM Exam Name: MRI SHOULD ER RT WO Admitt ing Diagno sis(es ): RADIOL OGY REPORT - FINAL EXAM: MRI SHOULD ER RT WO HISTOR Y: pain COMPAR EDDIE: None Availa ble. TECHNI QUE: Multip lanar multis equenc e imagin g of the right should er is perfor med withou t intrav enous contra st. Axial: GRE, Andrea l: T1, T2, Fat Sep G, Sagita l: T2, Fat Sep G, Axial: Recruiting Specialist al rotati on T2, Sagita l: Recruiting Specialist al rotati on T2. FINDIN GS: Osseou s:Unre markab le Joint space: Unrema rkable Page 1 of 2 [facility] Patien t Name: BRYSON LANIER Access ion #: [id number] Sex: M : 1965 Exam Date: 08/14/19 8:14 AM Exam Name: MRI SHOULD ER RT WO Admitt ing Diagno sis(es ): Labrum :Gross ly intact AC-onel nt:AC joint hypert rophic change s with subacr omial outlet narrow ing Rotato r cuff:T here is high-g rade partia l-thic kness tear of the nonart icular surfac e of the supras pinatu s tendon , this may be functi oning as a full-t hickne ss tear. Bicipi silvana labral tendon :Incom pletel y evalua juan m IMPRES DEMETRIO: See above. Create d and electr onical ly signed by: Richmond rosas MD Signed Date: 08/14/19 6:22 PM (CT) Dictat ed by: Richmond rosas MD (CT) (CT) Page [address] (Imaging) [address] [place], [address], 08/14/2022 08:40:30 08/15/19 23 08/13/2022 MRI, shoul brigid, w/o contr ast No observ ation record ed. [email or web address] Not Available 2022 08:58:18 03/20/20 XR, knee No observ ation record ed. [email or web address] [facility] [place] [address], [place], [address], 03/20/2023 15:07:04 Result Notes None recorded. Problems Name Problem SNOMED Code Status Onset Date Resolution Date Notes Provider Name and Address Organization Details Recorded Time Bilateral osteoarth ritis of knees 72432522731 9107 Active 2021 Not Available [facility] 3 01:07:15 Bilateral knee pain Active 2019 Not Available [facility] 3 01:07:15 Bilateral knee pain Completed 201803/22/2019 Not Available [facility] 3 01:07:15 Pain in left sacroilia c joint 41550652686 546540 Active 2021 Not Available [facility] 3 01:07:15 Nocturia 891379533 Completed Not Available [facility] 3 01:07:15 Pain of left shoulder joint 58583343387 747366 Active 2022 Not Available [facility] 3 01:07:15 Pain of right shoulder joint 25718429250 850644 Active 2021 Not Available [facility] 3 01:07:16 Pain of left elbow joint 26503870832 607745 Completed 201803/07/2019 Not Available [facility] 3 01:07:16 Snoring symptoms 373308517 Active Not Available [facility] 3 01:07:16 Blood urea outside reference range 259314106 Completed 201803/07/2019 Not Available [facility] 3 01:07:16 Partial thickness rotator cuff tear 919052411 Active 2021 Not Available [facility] 3 01:07:16 Full thickness rotator cuff tear 505022255 Active 2022 Not Available [facility] 3 01:07:16 Full thickness rotator cuff tear 226029531 Active 2022 Not Available [facility] 3 01:07:16 Periphera l venous insuffici ency 76924055 Active Not Available [facility] 3 01:07:16 Lumbar spondylos is 381720998 Active 2021 Not Available [facility] 3 01:07:16 Carcinoma of prostate 546173459 Active 2019 Not Available [facility] 3 01:07:17 Carcinoma of prostate 157829749 Completed 201803/07/2019 Not Available [facility] 3 01:07:17 Degenerat ion of lumbar intervert ebral disc 02927826 Active 2018 Not Available [facility] 3 01:07:17 Deep vein phlebitis and thromboph lebitis of the leg Completed Not Available [facility] 3 01:07:17 Gastroeso phageal reflux disease without esophagit is 984285676 Active Not Available [facility] 3 01:07:17 Chronic low back pain 673631900 Active 2018 Not Available [facility] 3 01:07:17 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 67033909046 9100 Active 2020 Not Available [facility] 3 01:07:18 Carpal tunnel syndrome of right wrist 39881695037 9108 Active 2020 Not Available [facility] 3 01:07:18 Low back strain 174083707 Completed 201703/07/2019 Not Available [facility] 3 01:07:18 Microalbu minuria 277609529 Active 2019 Not Available [facility] 3 01:07:18 Type 2 diabetes mellitus without complicat ion 483628917 Active 2018 Not Available [facility] 3 01:07:18 Restless legs 40406062 Active 2019 Not Available [facility] 3 01:07:18 Hemosperm ia 53633739 Completed Not Available [facility] 3 01:07:19 Depressiv e disorder 88820383 Active Not Available [facility] 3 01:07:19 Seasonal allergic rhinitis 196269376 Active 2019 Not Available [facility] 3 01:07:19 Hypertens delmar disorder 61990935 Active 2018 Not Available [facility] 3 01:07:19 Neuropath y 522417623 Active 2020 Not Available [facility] 3 01:07:19 Memory impairmen t 495305159 Active 2018 Not Available [facility] 3 01:07:19 Osteoarth ritis 297845416 Active 2021 Not Available [facility] 3 01:07:20 Multiple axillary skin tags 189056499 Active 2019 Not Available [facility] 3 01:07:20 Dysphagia 77006112 Active 2018 Not Available [facility] 3 01:07:20 Obese 371435663 Completed 201803/07/2019 Not Available [facility] 3 01:07:20 Obesity 162056024 Active 2018 Not Available [facility] 3 01:07:20 Epidermoi d cyst of skin 376501876 Completed Not Available [facility] 3 01:07:21 History of malignant neoplasm of prostate 646641863 Active 2018 Not Available [facility] 3 01:07:21 Swelling of lower leg 645732515 Active 2019 Not Available [facility] 3 01:07:21 Shoulder pain 86592441 Completed 201803/07/2019 Not Available [facility] 3 01:07:21 Pain of right knee joint 45331932851 4100 Active 2021 Not Available [facility] 3 01:07:22 Pain of left knee joint 63752485177 4107 Active 2021 Not Available [facility] 3 01:07:22 Hip pain 62021971 Completed Not Available [facility] 3 01:07:22 Upper respirato ry infection 81291851 Completed Not Available [facility] 3 01:07:22 Lower abdominal pain 25326633 Completed Not Available [facility] 3 01:07:23 Hyperlipi demia 74022681 Active Not Available [facility] 3 01:07:23 Disorder of bursa of shoulder region 32776761 Completed Not Available [facility] 3 01:07:23 Essential hypertens ion 61171093 Completed Not Available [facility] 3 01:07:23 Sleep apnea 03721899 Active Not Available [facility] 3 01:07:24 Posterior rhinorrhe a 80543036 Completed Not Available [facility] 3 01:07:24 Obstructi ve sleep apnea syndrome 08222306 Active 2018 Not Available [facility] 3 01:07:24 Neck pain 43466241 Completed Not Available [facility] 3 01:07:24 Fatigue 98742317 Completed Not Available [facility] 3 01:07:25 Ex-smoker 1583378 Active 2018 Not Available [facility] 3 01:07:25 Abnormal urine odor 4677333 Completed 201803/07/2019 Not Available [facility] 3 01:07:25 Partial thickness rotator cuff tear 327674375 Active 2022 LALA Phillips [address], [address], [place], [address] , [employer] 3 15:33:33 Problem Notes None recorded. Procedures Surgical History Date Name Laterality Status Provider Name and Address Organization Details Recorded Time 08/15/19 23 Ortho - Cortisone Injection completed Jose Peres MD [address], [address], [place], [address], [employer] 08/14/2022 14:48:18 Oral surgery procedure completed Not Available [facility] 07/09/2022 00:53:24 procedure on vein completed Not Available [facility] 07/09/2022 00:53:24 Back Surgeries completed Not Available [facility] 07/09/2022 00:53:24 Prostatectomy (turp) completed Not Available [facility] 07/09/2022 00:53:24 Imaging Results Imaging Date Name Status [facility]Modified by [facility] Details LastModified Time 05/20/2022 XR, shoulder, 2 or more view completed [id number] [facility] [place] [address], [place], [address], 07/09/2022 01:25:44 08/13/2022 MRI, shoulder, w/o contrast completed irvin [facility] (Imaging) [address], [place], [address], 08/14/2022 08:40:30 08/13/2022 MRI, shoulder, w/o contrast completed [email or web address] Information not available 08/14/2022 08:58:18 03/20/2023 XR, knee completed [email or web address] [facility] [place] [address], [place], [address], 03/20/2023 15:07:04 Procedure Notes None recorded. Medical Equipment None Reported. Medications Name Sig Start Date Stop Date Status Note LastModified by Organization Details LastModified Time cyclobenza alie 10 mg tablet Take 1 tablet every 12 hours by oral route as needed for 30 days. active Not Available Not Available No t Available amoxicilli n 500 mg capsule 02/08 completed Not Available Not Available Not Available prednisone 10 mg tablet active Not Available Not Available Not Available doxycyclin e hyclate 100 mg capsule TAKE 1 CAPSULE BY MOUTH EVERY 12 HOURS UNTIL GONE active Not Available Not Available No t Available lidocaine- epinephrin e (PF) 2 %-1:200,00 0 injection solution Take 2 mL as needed by injectio n route for 1 day. 12/06 completed Not Available Not Available Not Available trazodone 50 mg tablet TAKE 1 TABLET BY MOUTH AT BEDTIME NEEDED active Not Available Not Available No t Available cetirizine 10 mg tablet TK 1 T PO QD PRN 03/07 completed Not Available Not Available Not Available atorvastat in 10 mg tablet TK 1 T PO QD HS active Not Available Not Available No t Available azithromyc in 250 mg tablet TK 2 TS PO AT ONCE TODAY THEN TK 1 T PO ONCE D FOR 4 DAYS 03/20 completed Not Available Not Available Not Available hydrocodon e 5 mg-acetami nophen 325 mg tablet TAKE 1 TABLET BY MOUTH EVERY 4 HOURS NEEDED. 09/14 completed Not Available Not Available Not Available meloxicam 15 mg tablet Take 1 tablet every day by oral route in the morning for 30 days. active Not Available Not Available No t Available bupivacain e HCl 0.5 % (5 mg/mL) injection solution Take 20 mg by injectio n route. 2022 active Not Available Not Available Not Avai lable prednisone 20 mg tablet Take 1 tablet every day by oral route for 5 days. active Not Available Not Available No t Available sertraline 100 mg tablet TAKE 1 TABLET BY MOUTH EVERY DAY active Not Available Not Available No t Available sulfametho xazole 800 mg-trimeth oprim 160 mg tablet 06/11 completed Not Available Not Available Not Available aspirin 81 mg tablet,del ayed release Take 1 tablet every day by oral route after meals for 90 days. active Not Available Not Available No t Available tramadol 50 mg tablet TK 1 TO 2 TS PO Q 6 H PRN P 06/11 completed Not Available Not Available Not Available ketorolac 10 mg tablet active Not Available Not Available Not Available Kenalog 40 mg/mL suspension for injection Take 1.5 mL every day by injectio n route for 1 day. 06/11 completed Not Available Not Available Not Available prednisone 10 mg tablets in a dose pack Take 1 tab by mouth, 3 times a day for 3 daysTake 1 tab by mouth 2 times a day for 2 daysTake 1 tab by mouth once a day for 1 day active Not Available Not Available No t Available meloxicam 7.5 mg tablet TAKE 1 TABLET BY MOUTH EVERY DAY active Not Available Not Available No t Available oxycodone- acetaminop hen 5 mg-325 mg tablet TAKE 1 TABLET BY MOUTH EVERY 6 HOURS NEEDED FOR SEVERE PAIN ONLY. active Not Available Not Available No t Available methocarba mol 750 mg tablet Take 1 tablet 3 times a day by oral route as needed. active Not Available Not Available No t Available Diphenhist 25 mg tablet TK 2 T PO Q 6 H PRN ITCHING OR ALLERGIE S 03/07 completed Not Available Not Available Not Available gabapentin 800 mg tablet TAKE 1 TABLET BY MOUTH TWICE A DAY active Not Available Not Available No t Available Kenalog 10 mg/mL suspension for injection Take 20 mg by injectio n route. 2022 active [facility]: [phone] Not Available Not Available Not Available baclofen 10 mg tablet TAKE 1 TABLET BY MOUTH THREE TIMES DAILY NEEDED FOR MUSCLE PAIN active Not Available Not Available No t Available benzonatat e 100 mg capsule TK 1 C PO Q 8 H PRF COUGH active Not Available Not Available No t Available hydrocodon e 7.5 mg-acetami nophen 325 mg tablet Take 1 tablet every 6 hours by oral route as needed for 10 days. active Not Available Not Available No t Available cephalexin 500 mg capsule 04/08 completed Not Available Not Available Not Available lidocaine 5 % topical patch UNWRAP AND APPLY 1 PATCH ONTO THE SKIN ONCE DAILY. LEAVE ON FOR UP TO 12 HOURS, THEN REMOVE. 09/14 completed Not Available Not Available Not Available oxybutynin chloride ER 5 mg tablet,ext ended release 24 hr 06/16 completed Not Available Not Available Not Available gabapentin 300 mg capsule Take 1 cap in AM, 1 in afternoo n and 2 at bedtime (4 per day). active Not Available Not Available No t Available diclofenac sodium 75 mg tablet,del ayed release TAKE 1 TABLET BY MOUTH TWICE A DAY active Not Available Not Available No t Available nystatin 100,000 unit/gram topical powder APPLY TOPICALL Y 4 TIMES A DAY. active Not Available Not Available No t Available diazepam 10 mg tablet 03/20 completed Not Available Not Available Not Available ibuprofen 600 mg tablet 03/07 completed Not Available Not Available Not Available methylpred nisolone 4 mg tablets in a dose pack Take as directed on pack. Directio ns for Medrol Dosepak: 1st day: 2 tablets before breakfas t, 1 tablet after lunch and after supper, and 2 tablets at bedtime. 2nd day: 1 tablet before breakfas t. 1 tablet after lunch and after supper, and 2 tablets at bedtime. 3rd day: 1 tablet before breakfas t, after lunch, after supper and at bedtime. 4th day: 1 tablet before breakfas t, after lunch and at bedtime. 5th day: 1 tablet before breakfas t and at bedtime. 6th day: 1 tablet before breakfas t 04/08 completed Not Available Not Available Not Available lisinopril 40 mg tablet TAKE 1 TABLET BY MOUTH EVERY DAY active Not Available Not Available No t Available fluticason e propionate 50 mcg/actuat ion nasal spray,susp ension INHALE 2 SPRAYS IN EACH NOSTRIL EVERY MORNING DIRECTED 09/14 completed Not Available Not Available Not Available metformin ER 500 mg tablet,ext ended release 24 hr TAKE 1 TABLET BY MOUTH EVERY DAY WITH BREAKFAS T active Not Available Not Available No t Available sertraline 50 mg tablet TAKE 1 TABLET BY MOUTH EVERY DAY active Not Available Not Available No t Available naproxen 500 mg tablet TAKE 1 TABLET BY MOUTH TWICE A DAY 2022 active Not Available Not Available Not Avai lable amoxicilli n 500 mg-potassi um clavulanat e 125 mg tablet 02/08 completed Not Available Not Available Not Available oxycodone 5 mg tablet 11/04 completed per pt he is not taking Not Available Not Available Not Available hydroxyzin e pamoate 25 mg capsule TAKE 1 CAPSULE EVERY FOUR HOURS NEEDED active Not Available Not Available No t Available cyclobenza alie 5 mg tablet TAKE 1 TABLET BY MOUTH AT BEDTIME FOR 10 DAYS 03/07 completed Not Available Not Available Not Available Senna Plus 8.6 mg-50 mg tablet TK 2 TS PO Q 12 H PRF CONSTIPA TION 11/04 completed per pt he is not taking Not Available Not Available Not Available chlorhexid ine gluconate 0.12 % mouthwash 03/07 completed Not Available Not Available Not Available lidocaine (PF) 10 mg/mL (1 %) injection solution In office injectio n administ ered by the provider 04/08 completed [facility]: 0409-42 76-17 Not Available Not Available Not Available lidocaine (PF) 5 mg/mL (0.5 %) injection solution Take 30 mg by injectio n route. active Not Available Not Available No t Available Keflex 750 mg capsule Take 1 capsule twice a day by oral route as directed for 10 days. active Not Available Not Available No t Available hydrochlor othiazide 12.5 mg tablet TAKE 1 TABLET BY MOUTH EVERY MORNING active Not Available Not Available No t Available Xarelto 10 mg tablet TAKE 1 TABLET BY MOUTH DAILY STARTING 24 HOURS AFTER SURGERY. active Not Available Not Available No t Available ropivacain e (PF) 5 mg/mL (0.5 %) injection solution Take 20 mg by injectio n route. 2022 active [facility] 91374-7 64-01 Not Available Not Available Not Available Chantix Continuing Month Box 1 mg tablet active Not Available Not Available Not Available Chantix Starting Month Box 0.5 mg (11)-1 mg (42) tablets in dose pack active Not Available Not Available No t Available Banophen 50 mg capsule TAKE 1 CAPSULE BY MOUTH EVERY 6 HOURS NEEDED FOR ITCHING active Not Available Not Available No t Available Invokana 100 mg tablet Take 1 tablet every day by oral route in the morning for 30 days. 06/16 completed Not Available Not Available Not Available Pennsaid 20 mg/gram/ac tuation (2 %) topical soln in metered-do se pump APPLY 2 PUMPS TO AFFECTED KNEE(S) TWICE DAILY 03/07 completed Not Available Not Available Not Available Jardiance 25 mg tablet TAKE 1 TABLET BY MOUTH EVERY DAY active Not Available Not Available No t Available Accu-Chek Guide test strips USE TO TEST BLOOD SUGAR 2-4 TIMES DAILY 09/14 completed Not Available Not Available Not Available Accu-Chek Guide Glucose Meter TEST 2 TO 4 TIMES D UTD 09/14 completed Not Available Not Available Not Available Accu-Chek Fastclix Lancet Drum USE 2 TO 4 TIMES PER DAY DIRECTED 09/14 completed Not Available Not Available Not Available Rybelsus 14 mg tablet active Not Available Not Available Not Available Rybelsus 7 mg tablet active Not Available Not Available No t Available Vitals Date Recorded Body height Provider Name an d Address Organization Details Last Updated DateTime 05/20/2022 193.04 cm Not Available [facility] 01:05:00 Date Recorded Body height Body mass index (BMI) Body weight Provider Name and Address Organization Details Last Updated DateTime 08/14/2022 193.04 cm 37.7 kg/m2 558385.63 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[employer] 08/14/2022 14:12:21 Date Recorded Body height Body mass index (BMI) Body weight Provider Name and Address Organization Details Last Updated DateTime 10/07/2022 193.04 cm 36.8 kg/m2 711366.9 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[employer] 10/07/2022 14:45:15 Date Recorded Body height Body mass index (BMI) Body weight Provider Name and Address Organization Details Last Updated DateTime 01/01/2023 193.04 cm 37.7 kg/m2 703352.63 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 Occasional [id number] Information not available 07/09/2022 What Is Your Occupation? [employer] [id number] Information not available 07/09/2022 What Was The Date Of Your Most Recent Tobacco Screening? 07/12/2020 [id number] Information not available 07/09/2022 Sex: Unknown Functional Status None recorded. Mental Status None recorded. Family History Relationship Description Onset Age of this Age Resolved Age Notes LastModified by Organization Details LastModified Time Father Heart disease [id number] Not available 07/09/2022 00:53:31 Father Family history of stroke [id number] Not available 07/09/2022 00:53:31 Father Family history of malignant neoplasm [id number] Not available 07/09/2022 00:53:31 Father Hypertensive disorder [id number] Not available 07/09/2022 00:53:31 Medical History No medical history recorded. Immunizations Vaccine Type Date Status Note Provider Nam e and Address Organization Details Recorded Time Influenza, split virus, trivalent, PF 02/08/2015 completed Not Available [facility] 2022 01:24:42 Tdap 06/11/2018 completed Not Available [facility] 07/09/2022 01:24:42 Influenza, split virus, quadrivalent, PF 02/08/2018 completed Not Available [facility] 01:24:42 Past Encounters Encounter ID Performer Location Encounter Start Date Encounter Closed Date Diagnosis/Indication Diagnosis SNOMED-CT Code Diagnosis ICD10 Code Diagnosis Note [id number] [facility] [place] [address] [place] [address] 07/12/2020 00:00:00 07/12/2020 09:37:40 [id number] [facility] [place] [address] [place] [address] 08/09/2020 00:00:00 08/09/2020 12:23:20 [id number] [facility] [place] [address] [place] [address] 12/06/2020 00:00:00 12/06/2020 10:55:29 [id number] [facility] [place] [address] [place] [address] 12/07/2020 00:00:00 12/10/2020 10:53:17 [id number] [facility] [place] [address] [place] [address] 03/26/2021 00:00:00 03/26/2021 16:24:47 [id number] [facility] [place] [address] [place] [address] 09/04/2021 00:00:00 09/04/2021 09:42:29 [id number] [facility] [place] [address] [place] [address] 04/08/2022 00:00:00 04/08/2022 17:23:51 [id number] [facility] [place] [address] [place] [address] 05/20/2022 00:00:00 05/20/2022 15:29:36 [id number] Jose Peres MD [facility] [place] [address] [place] [address] 08/14/2022 14:06:33 08/14/2022 14:42:42 Pain of right shoulder joint 2016469518 7127608 M25.511 Partial th ickness rotator cuff tear 853119895 M75.101 Full thick ness rotator cuff tear 272262483 M75.121 Pain of le ft knee joint 6151476985 46427 M25.562 [id number] LALA Phillips [facility] [place] [address] [place] [address] 10/07/2022 14:37:17 10/08/2022 14:58:41 Pain of right shoulder joint 7978646806 8864607 M25.511 Partial th ickness rotator cuff tear 284490267 M75.101 Full thick ness rotator cuff tear 982441134 M75.121 Pain of le ft knee joint 3367089995 54059 M25.562 Pain of ri ght knee joint 0992032126 48819 M25.561 Bilateral osteoarthritis of knees 6645500437 71798 M17.0 [id number] LALA Phillips [facility] [place] [address] [place] [address] 01/01/2023 15:00:05 01/05/2023 12:03:12 Pain of right shoulder joint 2846026546 6840105 M25.511 Partial th ickness rotator cuff tear 208452339 M75.101 Full thick ness rotator cuff tear 310354131 M75.121 Pain of le ft knee joint 6718418476 23004 M25.562 Bilateral osteoarthritis of knees 5583129592 85131 M17.0 [id number] LALA Phillips [facility] [place] [address] [place] [address] 03/20/2023 14:02:05 03/20/2023 14:49:19 Pain of right knee joint 8991193184 31672 M25.561 Pain of ri ght shoulder joint 6402818281 0892052 M25.511 Partial th ickness rotator cuff tear 184081999 M75.101 Full thick ness rotator cuff tear 866893679 M75.121 Bilateral osteoarthritis of knees 3213544111 49165 M17.0 Health Concerns Section Related Observation LastModified by Organization Detai ls LastModified Time None Recorded Concern Status LastModified by Organization Details LastModified Time None Recorded Advance Directives Directive None Recorded Payers Encounter Date Sequence Insurance Name Policy Number Policy Grossman Covered Member ID Grossman Member ID Guarantor Name 08/14/2022 1 [facility] Bryson Moya Emmanuel [id number] Bryson Moya Emmanuel 10/07/2022 1 [facility] Bryson Nita Emmanuel [id number] Bryson Nita Emmanuel 01/01/2023 1 [facility] Bryson Moya Emmanuel [id number] Bryson Liebermane 03/20/2023 1 [facility] [id number] Bryson Liebermane [id number] Bryson Lanier Notes Date Note Type Note Provider Name and Address Organization Details Recorded Time 05/20/2022 text/html ShoulderReported bypatient.Hand Dominance:right Location:right; anterior; lateral Quality:aching; throbbing; frequent Severity:moderate Timing:cannot identify; chronic Duration:continuous since onset Context:cannot identify Aggravating Factors:carrying; throwing Alleviating Factors:ice; rest; elevation; NSAIDs Associated Symptoms:no numbness; no tingling; no swelling; no redness; no warmth; no ecchymosis; no catching/locking; no buckling; no grinding; no instability; no radiation down arm; no drainage; no fever; no chills; no weight loss; no change in bowel/bladder habits;weakness;poppi ng/clicking Not Available [employer] 05/20/2022 15:29:36 08/14/2022 text/html Patient returns shoulder pain right. As his primary complaint he presents with an MRI scan. He still has pain raising his arm up has difficulty raising above the horizontal. He is weak and has difficulty with normal activities. Secondary complaint is knee pain left he has got degenerative changes in his knee and wonders about a cortisone shot. Jose Peres MD [address] [place] [address], [phone], [employer] 08/14/2022 14:49:55 10/07/2022 text/html Patient returns complaining of right knee and right shoulder pain. He has been seen for these issues previously he has known advanced primary osteoarthritis with significant narrowing in the medial compartment of the right knee he also has a significant rotator cuff tendon tear about the size of a quarter. patient has been cautioned previously and again today that if he waits too long this it may progress to a much larger irrepairable tear with time. The patient is considering shoulder arthroscopy and rotator cuff tendon repair but for now he states he would like a shot of cortisone in his right shoulder to help with the pain. Denies any new symptoms. His right knee is also bothering him due to primary osteoarthritis he had a left knee shot about 2 months ago he would like the right knee injected with cortisone today. Left knee did get significant benefit from the cortisone injection previously. LALA Phillips [address], [facility] [address], [place], [address], [employer] 10/07/2022 17:00:12 01/01/2023 text/html Patient returns complaining of right shoulder pain and left knee pain. We have seen him for these issues before. He has a known near full-thickness rotator cuff tendon tear the right shoulder and impingement after an injury. He also has moderately severe primary osteoarthritis both knees left knee a little worse medially than the right with narrowing here. denies any new symptoms no new trauma or injury. He has aching pain in the knee anterior to posterior worse with squatting kneeling going up and down stairs. His right shoulder also aches and bothers him he has trouble doing anything heavy repetitive with the right shoulder. Denies any new weakness no new trauma or injury here. Would like shot of cortisone both sites today as this has worked well for him in the past it has been 3 months since his last injections. LALA Phillips [address], [facility] [address], [place], [address], [employer] 01/01/2023 15:33:47 03/20/2023 text/html patient returns today complaining of right knee pain. His last visit he was having issues with his left knee he does have significant narrowing in the left knee medial compartment a shot of cortisone gave him excellent relief this was nearly 3 months ago. He states now his right knee is bothering him denies any specific trauma or injury most the pain is localized medially he does report crepitation and some puffiness in the knee. He states the pain is about a 6 on a scale of 1-10 he takes diclofenac daily but this has not been helping lately. He has trouble with squatting kneeling going up and down stairs standing or walking for long periods aggravates his symptoms as well. Denies any erythema heat no signs of infection no locking or catching or mechanical symptoms. Pain is somewhat aggravating feels similar to the opposite side before he had treatment for that knee. Comes in today for x-rays and evaluation of his right knee as well. LALA Phillips [address] [facility], [facility] [address], [place], [address], [place] [facility] [employer] 03/20/2023 15:07:42
--- OUTSIDE RECORDS SUMMARY | 2024-08-12 19:41 | XMS_ITS | Referral Summary ---
Author Organization [id number] Cross Address [address] [place] [id number] Care Team Providers Care Cashier And Salesperson Name Role Phone Roque Bhandari MD, Victor Manuel Moseley Primary Care Provide r Encounters Date Type Department Care Team Description 08/12/2024 Telephone [facility] [address] [place] [phone] Victor Manuel Nevarez Jr., MD Recommendation Request 06/24/2024 Telephone [facility] Primary Care [address] [place] [phone] Victor Manuel Nevarez Jr., MD Medical Question/Miscellaneous from Last 3 Months Allergies No known active allergies Medications aspirin 81 mg enteric coated tablet Take 1 tablet (81 mg total) by mouth daily Active cholecalciferol, vitamin D3, (VITAMIN D3 ORAL) Take by mouth Active hydrOXYzine (VISTARIL) 25 mg capsuleIndication s:Primary insomnia Take 1 capsule (25 mg total) by mouth every 4 (four) hours as needed for anxiety 30 capsule 3 4 Active hydroCHLOROthiazi de (HYDRODIURIL) 12.5 mg tabletIndications :Type 2 diabetes mellitus without complication, without long-term current use of insulin (HCC) TAKE 1 TABLET BY MOUTH EVERY MORNING 90 tablet 3 4 Active sertraline (ZOLOFT) 100 mg tabletIndications :Major depressive disorder with single episode, in full remission Take 1.5 tablets (150 mg total) by mouth daily 135 tablet 3 4 09/23/19 25 Active alpha lipoic acid 600 mg capsuleIndication s:Neuropathy Take 1 capsule (600 mg total) by mouth every other day 4 Active lisinopriL (PRINIVIL,ZESTRIL ) 40 mg tabletIndications :Primary hypertension TAKE 1 TABLET(40 MG) BY MOUTH DAILY 100 tablet 1 4 Active metFORMIN XR (GLUCOPHAGE XR) 500 mg 24 hr tabletIndications :Type 2 diabetes mellitus without complication, without long-term current use of insulin ([facility]) Take 1 tablet (500 mg total) by mouth daily with breakfast 90 tablet 3 4 Active lancets miscIndications:T ype 2 diabetes mellitus without complication, without long-term current use of insulin ([facility]) 1 each by other route as directed 100 each 4 Active meloxicam (MOBIC) 15 mg tablet Take 1 tablet (15 mg total) by mouth daily 4 Active semaglutide 0.25 mg or 0.5 mg (2 mg/3 mL) pen injector injectionIndicati ons:Type 2 diabetes mellitus without complication, without long-term current use of insulin ([facility]) Inject 0.5 mg under the skin every 7 days 4 Active traZODone (DESYREL) 50 mg tabletIndications :Primary insomnia TAKE 1 TABLET(50 MG) BY MOUTH EVERY NIGHT 90 tablet 3 4 Active LORazepam (ATIVAN) 0.5 mg tabletIndications :Major depressive disorder with single episode, in full remission Take 1-2 tablets (0.5-1 mg total) by mouth once as needed for anxiety for up to 1 dose Take 30 minutes prior to procedure. 2 tablet 5 Active baclofen (LIORESAL) 10 mg tabletIndications :Strain of neck muscle, sequela Take 1 tablet (10 mg total) by mouth 3 (three) times a day as needed for muscle spasms 60 tablet 3 5 Active Active Problems Problem Noted Date Diagnosed Date DISH (diffuse idiopathic skeletal hyperostosis) 03/23/2024 Assessment & Plan (03/23/2024 8:14 AM FARMWORKER FRUIT): Dx by chirporactic and seeing surgeon at [facility] for follow up Started on mobic Special screening for malignant neoplasms, colon 01/29/2024 Class 2 severe obesity due t o excess calories with serious comorbidity and body mass index (BMI) of 37.0 to 37.9 in adult 09/23/2023 Assessment & Plan (09/23/2023 11:03 AM CDT): Tried to get ozmepic Will try zepbound prescription Statin intolerance 09/23/2023 Assessment & Plan (09/23/2023 11:04 AM CDT): Myaglias from statin attempts in past Chronic bilateral low back pain without sciatica 05/26/2023 Preventative health care 01/16/2022 Assessment & Plan (09/23/2023 11:04 AM CDT): Reviewed labs, screenings and vaccines Assessment & Plan (03/26/2023 11:31 AM FARMWORKER FRUIT): Reviewed labs, screenings and vaccines Assessment & Plan (01/16/2022 2:31 PM CDT): Reviewed labs Waiting to do colonguard Will shingle vaccine at outside facility [facility] 01/16/2022 Assessment & Plan (01/16/2022 2:33 PM CDT): Will try topical and oral benadryl Pure hypercholesterolemia 05/16/2021 Assessment & Plan (03/26/2023 11:31 AM FARMWORKER FRUIT): Chronic stable Well controlled Continue current prescribed medications at current dose Type 2 diabetes mellitus wit hout complication, without long-term current use of insulin 02/04/2021 Assessment & Plan (03/23/2024 8:13 AM FARMWORKER [employer]UIT): Controlled, will continue metformin but also will provide with ozempic-samples for better glycemia control Assessment & Plan (09/23/2023 11:04 AM CDT): Chronic stable Well controlled Continue current prescribed medications metofrmin, lisinoirl and at current dose Assessment & Plan (03/26/2023 11:31 AM FARMWORK[employer]UIT): Chronic stable Well controlled Continue current prescribed medications at current dose Assessment & Plan (2022 3:46 PM CDT): Sugars are and have always been wellc otnrolled Assessment & Plan (10/08/2021 3:30 PM CDT): Well controlled at 5.5% today Assessment & Plan (02/04/2021 9:52 AM CDT): Checking Hgba1c Continue Jardiaince and metformin Primary osteoarthritis of right shoulder 021 Assessment & Plan (02/04/2021 9:53 AM CDT): Continue diclofenac Referral to ortho for right shoulder pain Obstructive sleep apnea of adult 02/04/2021 Assessment & Plan (02/04/2021 9:54 AM CDT): We are going to check lab work including testosterone Going to hold statin for now to see if his symptoms improve ( has only been on this for 8 months) If this does not change, we will attempt wean off the gabapentin Primary hypertension 02/04/2021 Assessment & Plan (09/23/2023 11:03 AM CDT): Chronic stable Well controlled Continue current prescribed medications hctz and lisinopril at current dose Assessment & Plan (03/26/2023 11:31 AM FARMWORK[employer]UIT): Chronic stable Well controlled Continue current prescribed medications at current dose Assessment & Plan (02/04/2021 9:44 AM CDT): Continue lisinorpil and HCTZ Major depressive disorder wi th single episode, in full remission 02/04/2021 Assessment & Plan (09/23/2023 9:54 AM CDT): Chronic stable Well controlled Continue current prescribed medications zoloft at current dose Assessment & Plan (03/26/2023 11:31 AM FARMWORKER [employer]UIT): Chronic stable Well controlled Continue current prescribed medications at current dose Assessment & Plan (2022 3:47 PM CDT): He is doing well, no SI Recommend he stay on his medication list with no changes Discussed testosterone work up and his risk with prostate cancer history etc. He was in agreement to not pursue this. Weight loss would help with his levels, mood and sleep. Assessment & Plan (01/16/2022 1:42 PM CDT): Continue zoloft Assessment & Plan (02/04/2021 10:09 AM CDT): Has been on zoloft for 30+years, When he was started was in depression, drinking a lot. Was in the hospital for a week-started on zoloft has never been off since We discussed his symptoms of occasional ticks and we want to start attempting to wean off the zoloft We will do 50 mg for 3-4 weeks, then 25 mg for 3-4 weeks and then hopefully stop Resolved Problems Problem Noted Date Diagnosed Date Resolved Date Class 2 severe obesity due t o excess calories with serious comorbidity and body mass index (BMI) of 38.0 to 38.9 in adult 10/08/2021 4 Assessment & Plan (03/26/2023 11:31 AM FARMWORKER FRUIT): With Dm2 Monitor weight has been stbale Assessment & Plan (2022 3:46 PM CDT): With DM2 Monitor weight Assessment & Plan (01/16/2022 2:31 PM CDT): Is on rybelsus Lose some weight and then it came back on Assessment & Plan (10/08/2021 3:30 PM CDT): Did lose 10 lbs conitnue rybelsus Immunizations Immunization Administration Dates Next Due Influenza, Quadrivalent, Spl it, Preservative Free, Intramuscular 03/26/2023,02/04/2021,02/08/2018 Influenza, Trivalent, Preser vative Free, Intramuscular 03/23/2024,02/08/2015 Influenza, Unspecified 03/11/2022 Pneumococcal Conjugate Pcv20 03/26/2023 Tdap 06/11/2018 Social History Tobacco Use Types Packs/Day Years Used Date Smoking Tobacco: Former Smokeless Tobacco: Never Tobacco Cessation:Counseling Given: Not Answered AUDIT-C Answer Date Recorded Q1: How often [...] on file Legal Sex Male 6:34 AM [employer]ARM[employer] Gender Identity Not on file Sexual Orientation Not on file Last Filed Vital Signs Vital Sign Reading Time Taken Comments Blood Pressure 160/72 03/23/2024 7:40 AM [employer]ARMWORK[employer]UIT Pulse 60 03/23/2024 7:40 AM [employer]ARM[employer] Temperature 36.4 C (97.6 F) 03/23/2024 7:40 AM FARMWORK[employer]UIT Respiratory Rate 18 03/23/2024 7:40 AM FARMWORKER FRUIT Oxygen Saturation 96% 03/23/2024 7:40 AM FARMWORK[employer]UIT Inhaled Oxygen Concentration - - Weight 138.3 kg (305 lb) 03/23/2024 7:40 AM [employer]ARM[employer]UIT Height 193 cm (6' 4 ) 03/23/2024 7:40 AM FARM[employer]UIT Body Mass Index 37.13 03/23/2024 7:40 AM FARMWORKER FRUIT Plan of Treatment Not on file Procedures Procedure Name Priority Date/Time Associated Diagnosis Comments EGFR Routine 03/23/2024 8:26 AM FARMWORKER FRUIT Type 2 diabetes mellitus without complication, without long-term current use of insulin (HCC) LIPID PANEL Routine 03/23/2024 8:26 AM FARMWORK[employer]UIT Type 2 diabetes mellitus without complication, without long-term current use of insulin (HCC) ALBUMIN CREATININE RATIO, URINE Routine 03/23/2024 8:26 AM FARMWORK[employer]UIT Type 2 diabetes mellitus without complication, without long-term current use of insulin (HCC) PSA SCREEN Routine 03/23/2024 8:26 AM FARMWORK[employer]UIT Preventative health care POCT HEMOGLOBIN A1C Routine 03/23/2024 7 :49 AM [employer]ARMWORK[employer]UIT Type 2 diabetes mellitus without complication, without long-term current use of insulin (HCC) COLONOSCOPY 02/15/2024 9:18 AM CDT DIABETES FOOT EXAM Routine 07/03/2023 DIABETES EYE EXAM Routine 06/03/2023 HEPATITIS C ANTIBODY Routine 02/07/2021 8:15 AM CDT Preventative health care from Last 3 Months or Most Recently Relevant to Health Maintenance Results * eGFR (03/23/2024 8:26 AM FARMWORKER [employer]UIT) eGFR >90 >=60 mL/min/1. 73 m2 Comment: Interpretive Data Reference Interval Normal >/= 90 mL/min/1.73m2 Mildly decreased* 60 - 89 mL/min/1.73m2 Mildly to moderately decreased 45 - 59 mL/min/1.73m2 Moderately to severely decreased 30 - 44 mL/min/1.73m2 Severely decreased 15 - 29 mL/min/1.73m2 Kidney Failure < 15 mL/min/1.73m2 *Relative to young adult level Estimated glomerular filtration rate is determined by the 2020 CKD-EPI equation recommended by the National Kidney Foundation (A Unifying Approach to GFR Estimation: Recommendations of the NKF-ASK Task Force on Reassessing the Inclusion of Race in Diagnosing Kidney Disease, JASN 2020). The CKD-EPI equation should not be used for patients with unstable renal function and has not been validated in children and those over 70. Current interpretive data was last reviewed 2021. Testing performed by: [address] [address] Blood 03/23/2024 8:26 AM FARMWORKER FRUIT 03/23/2024 9:43 AM FARMWORKER FRUIT Victor Manuel Nevarez Jr., MD LAB BLOOD ORDERABLES Final Result Performing Organization Address [facility] de Phone Number DA [address] [email or web address] [address] * PSA screen (03/23/2024 8:26 AM FARMWORKER FRUIT) PSA-Total 0.11 <=3.90 ng/mL Comment: Interpretive Data AGE SEX REFERENCE INTERVAL 0 minutes-150 years Female None 0 minutes-49 years Male None 50-59 years Male 0-3.90 60-69 years Male 0-5.40 70-79 years Male 0-6.20 80-150 years Male 0-6.20 The Murali PSA Total assay procedure was used. Results from different manufacturers or methods may not be comparable. Serial testing should be performed using the same method. Current interpretive data last revised 21. Testing performed by: [address] [address] Blood 03/23/2024 8:26 AM FARMWORKER FRUIT 03/23/2024 9:43 AM FARMWORKER FRUIT us Victor Manuel Nevarez Jr., MD LAB BLOOD ORDERABLES Final Result Performing Organization Address [facility] de Phone Number L[address] [email or web address] [address] * Albumin Creatinine Ratio, Urine (03/23/2024 8:26 AM FARMWORKER FRUIT) Albumin Ur <12.0 mg/L Comment: Interpretive Data No reference range established. Current interpretive data was last revised 2018. Testing performed by: [address] [address] Creatinine Ur 134.5 mg/dL DA GEORGE Comment: Interpretive Data No reference range established. Current interpretive data was last revised 2018. Testing performed by: [address] [address] Albumin Creatinine Ratio, Ur <9 1 - 29 mg/g DA GEORGE Comment:Testing performed by : [address] [address] Urine 03/23/2024 8:26 AM FARMWORKER FRUIT 03/23/2024 9:54 AM FARMWORKER FRUIT us Victor Manuel Nevarez Jr., MD LAB URINE ORDERABLES Final Result DA [address] [facility] Department of Laboratories [place], [place] [id number] * (ABNORMAL) Lipid panel (03/23/2024 8:26 AM FARMWORKER FRUIT) Cholesterol 207(H) 30 - 199 mg/dL Comment: Interpretive Data Ages < or = 19 years Acceptable: <170 mg/dL Borderline high: 170-199 mg/dL High: >or= 200 mg/dL Ages > or = 20 years Desirable: <200 mg/dL Borderline high: 200-239 mg/dL High: >or= 240 mg/dL Literature References: 1. Expert Panel on Integrated Guidelines for Cardiovascular Health and Risk Reduction in Children and Adolescents. Pediatrics 2011;128:S213 2. NCEP Expert Panel. Circulation 2004;110:227 Current Interpretive Data was last revised on 2017. Testing performed by: [address] [address] Triglycerides 85 <=149 mg/dL DA GEORGE Comment: Interpretive Data Ages < or = 9 years Acceptable: <75 mg/dL Borderline high: 75-99 mg/dL High: >or= 100 mg/dL Ages 10 to 20 years Acceptable: <90 mg/dL Borderline high: 90-129 mg/dL High: >or= 130 mg/dL Ages > or = 20 years Desirable: <150 mg/dL Borderline high: 150-199 mg/dL High: 200-499 mg/dL Very high: >or= 499 mg/dL Literature References: 1. Expert Panel on Integrated Guidelines for Cardiovascular Health and Risk Reduction in Children and Adolescents. Pediatrics 2011;128:S213 2. NCEP Expert Panel. Circulation 2004;110:227 Current Interpretive Data was last revised on 2017. Testing performed by: [address] [address] HDL 68 >=40 mg/dL [facility] Comment: Interpretive Data Ages < or = 19 years Acceptable: >45 mg/dL Borderline low: 40-45 mg/dL Low: <40 mg/dL Ages > or = 20 years Desirable: >or= 60 mg/dL Low: <40 mg/dL Literature References: 1. Expert Panel on Integrated Guidelines for Cardiovascular Health and Risk Reduction in Children and Adolescents. Pediatrics 2011;128:S213 2. NCEP Expert Panel. Circulation 2004;110:227 Current Interpretive Data was last revised on 2017. Testing performed by: [address] [address] LDL, calculated 124 <=129 mg/dL [facility] Comment: Interpretive Data Ages < or = 19 years Acceptable: <110 mg/dL Borderline high: 110-129 mg/dL High: >or= 130 mg/dL Ages > or = 20 years Optimal: <100 mg/dL Near optimal: 100-129 mg/dL Borderline high: 130-159 mg/dL High: >160 mg/dL Calculated using the Charly LDL-C estimating equation. This equation was implemented on 2023. Prior to this date LDL-C was estimated using the Friedewald equation. Literature References: 1. Expert Panel on Integrated Guidelines for Cardiovascular Health and Risk Reduction in Children and Adolescents. Pediatrics 2011;128:S213 2. NCEP Expert Panel. Circulation 2004;110:227 3. Charly Blair al. JUAN DAVID Cardiol. 2020 September 08;5(5):540-548. doi: 10.1001/[email or web address] Current Interpretive Data was last revised on 2023. Testing performed by: [address] [address] Non-HDL Cholesterol 139 mg/dL DA GEORGE Comment: Interpretive Data Ages < or = 19 years Acceptable: <120 mg/dL Borderline high: 120-144 mg/dL High: >145 mg/dL Ages > or = 20 years When triglycerides are >200 mg/dL, Non-HDL cholesterol is a secondary target of therapy with treatment goals that are 30 mg/dL greater than the LDL cholesterol target. Literature References: 1. Expert Panel on Integrated Guidelines for Cardiovascular Health and Risk Reduction in Children and Adolescents. Pediatrics 2011;128:S213 2. NCEP Expert Panel. Circulation 2004;110:227 Current Interpretive Data was last revised on 2017. Testing performed by: [address] [address] Chol/HDL ratio 3 DA Comment:Testing performed by : [address] [address] Blood 03/23/2024 8:26 AM FARMWORKER FRUIT 03/23/2024 9:43 AM FARMWORKER [employer]UIT us Victor Manuel Nevarez Jr., MD LAB BLOOD ORDERABLES Final Result [facility] [address] [facility] [place] [address] * POCT hemoglobin A1c (03/23/2024 7:49 AM FARMWORKER FRUIT) Hemoglobin A1C, POC 5.9 4.0 - 5.6 % Capillary blood 03/23/2024 7 :49 AM FARMWORK[employer]UIT Victor Manuel Nevarez Jr., MD POINT OF CARE TEST OR DERABLES Final Result * Colonoscopy (02/15/2024 9:18 AM CDT) Anatomical Region Laterality Modality Other Narrative Procedure Note Jorge Lee MD - 02/15/2024 9:[address] [facility] GI ENDOSCOPY Patient Name: Aditya Benitez Procedure Date: 02/15/2024 9:18 AM Date of : 1965 Admit Type: Outpatient Age: 58 Gender: Male Attending MD: Jorge Lee M.D. Room: [facility] ENDOSCOPY ROOM 05 Note Status: Finalized Procedure: Colonoscopy Indications: Screening for colorectal malignant neoplasm Referring MD: Victor Manuel Nevarez Jr., M.D. Providers: Jorge Lee M.D. Medicines: Monitored Anesthesia Care Complications: No immediate complications. Estimated Blood Loss: Estimated blood loss was minimal. Procedure: The benefits, risks and alternatives of theprocedure and sedation were discussed and informed consentwas obtained. All questions were answered. Please referto the signed informed consent document in the medical record. The scope was passed under direct vision.The CF-[id number] colonoscope was introduced through theanus and advanced to the cecum, identified by the appendiceal orifice, ileocecal valve and palpation. The colonoscopy was performed without difficulty.The patient tolerated the procedure well. The qualityof the bowel preparation was evaluated using the BBPS (Parker Bowel Preparation Scale) with scores of:Right Colon = 2 (minor amount of residual staining, small fragments of stool and/or opaque liquid, but mucosa seen well), Transverse Colon = 3 (entire mucosaseen well with no residual staining, small fragments of stool or opaque liquid) and Left Colon = 3 (entire mucosa seen well with no residual staining, small fragments of stool or opaque liquid). The totalBBPS score equals 8. The quality of the bowelpreparation was good. The ileocecal valve, appendiceal orifice, and rectum were photographed. Findings: A 6 mm polyp was found in the sigmoid colon. The polyp was semi-pedunculated. The polyp was removed with a cold snare. Resection and retrieval were complete. Estimated blood loss was minimal. Non-bleeding internal hemorrhoids were found during retroflexion. The hemorrhoids were mild. Many medium-mouthed diverticula were found in the sigmoid colon and descending colon. The exam was otherwise without abnormality on direct and retroflexion views. Impression: - One 6 mm polyp in the sigmoid colon, removed witha cold snare. Resected and retrieved. - Non-bleeding internal hemorrhoids. - Diverticulosis in the sigmoid colon and in the descending colon. - The examination was otherwise normal on directand retroflexion views. Recommendation: - Discharge patient to home. - Resume previous diet. - Continue present medications. - Await pathology results. - Repeat colonoscopy in 5 years for surveillancebased on pathology results. - Patient has a contact number available for emergencies. The signs and symptoms of potential delayed complications were discussed with thepatient. Return to normal activities tomorrow. Written discharge instructions were provided to thepatient. Jorge Lee M.D. Jorge Lee M.D. 02/15/2024 9:53:57 AM . Number of Addenda: 0 Note Initiated On: 02/15/2024 9:18 AM Recognized by the [employer] [employer] for promoting quality in endoscopy Jorge Lee MD ENDOSCOPY PROCEDURES Fin al Result * DIABETES FOOT EXAM (07/03/2023) SCRIBED DIABETIC FOOT EXAM Normal Historical Provider HEALTH MAINTENANCE Final Result * (ABNORMAL) DIABETES EYE EXAM (06/03/2023) SCRIBED DIABETIC DILATED EYE EXAM Abnormal Historical Provider HEALTH MAINTENANCE Edited Result - Final * Hepatitis C antibody (02/07/2021 8:15 AM CDT) Hep C Ab Nonreactive Nonreactive DA GEORGE Comment: Interpretive Data Nonreactive: Antibodies to HCV not detected. Does NOT exclude the possibility of recent exposure to HCV. Equivocal: Equivocal for HCV antibodies. Supplemental molecular testing will be automatically performed to determine infection status in accordance with current CDC screening recommendations. Reactive: Positive for HCV antibodies. This may represent current or past HCV infection. Supplemental molecular testing will be automatically performed to determine current infection status in accordance with current CDC screening recommendations. Interpretive data was last revised on 2019. Blood 02/07/2021 8:15 AM CDT 02/07/2021 10:57 AM CDT Victor Manuel Nevarez Jr., MD LAB MICROBIOLOGY - [facility] ORDERABLES Final Result DA [address] [facility] [place] [address] from Last 3 Months or Most Recently Relevant to Health Maintenance Insurance [facility] HMO/PPO Address: [facility] [id number] [place] [address] [facility] [employer] [facility] HMO/PPO Address: [address] [address] [place] [address] [facility] HMO/PPO Address: [address] [address] [place] [address] Care Teams Cashier And Salesperson Relationship Specialty Start Date End Date Victor Manuel Nevarez Jr., MD [address] [place] [id number] PCP - General Internal Medicine 02/04/21
--- OUTSIDE RECORDS SUMMARY | 2024-08-12 19:41 | XMS_ITS ---
Author Organization [facility] Address [address] [place] [address] Care Team Providers Care Mandrel Maker Name Role Phone Roque Victor Manuel Primary Care Provider Unavailab Radames Alexander Unavailable [phone] Meg Ag Unavailable [phone] ALLERGIES No Known Allergies RESULTS Component Value Reference Range Notes X ray : Thoracic Spine 3 vie ws, AP, Lateral, Swimmers Reviewed date:03/17/2024 07:54:53 AM Interpretation:946 Performing Lab: Notes/Report: 946 X ray : Lumbar Spine 3 views , AP, Lateral, Spot Reviewed date:03/17/2024 07:55:18 AM Interpretation:946 Performing Lab: Notes/Report: 946 REASON FOR REFERRAL Reason Eval and Treat Lumba r Stabilization Program, Focus on HEP of lumbar and abdominal strengthening Thoracic stabilitzation program,focus on home exercising program, Thoracic isometrics Diagnosis 1 Low back pain at [facility] (M54.50) Diagnosis 2 Thoracic back pain ( M54.6) Referral Organization [facility] Referring Provider First Name Meg Referring Provider Last Name Ancelmo Referring Provider Speciality Nurse Prac titioner Referred Provider Specialty Physical The rapy Referral Priority Routine REASON FOR VISIT Lumbar MEDICATIONS Medication SIG (Take, Route, Frequency, Duration) Notes Start Date End Date Status Medrol (Cecil) as directed Orally a s directed for 6 days 03/16/2024 Active Meloxicam 15 MG 1 tablet Orally Once a day for 30 day(s) 03/16/2024 Active traZODone HCl Active Sertraline HCl Activ e Lipoic Acid Active Baclofen Active Vitamin D Active Lisinopril-hydroCHLOROthia zide Active metFORMIN HCl Active Diclofenac Active Aspirin Active SOCIAL HISTORY Tobacco Use: Social History Observation Description Date Details (start date - stop date) Never Smoker NA - NA Sex Assigned At : Social History Observation Description Sex Assigned At Unknown Tobacco Use/Smoking Question Answer Notes Are you a nonsmoker VITAL SIGNS BMI 36.27 kg/m2 03/16/2024 Height 76 in 03/16/2024 Weight 298 lbs 03/16/2024 Encounters Encounter Location Date Provider Diagnosis [facility], [address] [place] [address] 03/16/2024 Meg Ag Thoracic back pain M54.6 and Other low back pain M54.59 ASSESSMENTS Encounter Date Diagnosis Assessment Notes Treatment Notes Treatment Clinical Notes 03/16/2024 Thoracic back pain (ICD-10 - M54.6) 03/16/2024 Other low back pain (ICD-10 - M54.59) PLAN OF TREATMENT Medication Medication Name Sig Start Date Stop Date Notes Medrol (Cecil) as directed Orally as directed for 6 days 10/2023 Meloxicam 15 MG 1 tablet Orally Once a day for 30 day(s) 1 05/16/2023 Referrals Referral Date Details Eval and Treat Lumba r Stabilization Program, Focus on HEP of lumbar and abdominal strengthening Thoracic stabilitzation program,focus on home exercising program, Thoracic isometrics Progress Notes * Examination Category Sub-Category Detail Notes X-Ray LUMBAR X-RAY: AP and lateral v iews of the lumbar spine were obtained today. 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
--- OUTSIDE RECORDS SUMMARY | 2024-08-12 19:41 | XMS_ITS | Clinical Summary ---
Author Organization [facility] Address [address] [place] [address] Care Team Providers Care Inspector Subassemblies Name Role Phone Roque Bhandari MD, Victor Manuel Jhaveri Primary Care Pro vider Allergies No known active allergies Medications aspirin EC (ECOTRIN) 81 MG tablet Take 1 tablet (81 mg total) by mouth daily. Active gabapentin (NEURONTIN) 800 MG tablet Take 1 tablet (800 mg total) by mouth 2 (two) times daily. Active hydroCHLOROthia zide (MICROZIDE) 12.5 MG tablet Take 1 tablet (12.5 mg total) by mouth every morning. 07/15/2022 Active lisinopril (PRINIVIL) 40 MG tablet Take 1 tablet (40 mg total) by mouth daily. 06/26/2022 Active meloxicam (MOBIC) 7.5 MG tablet Take 1 tablet (7.5 mg total) by mouth daily. Active metFORMIN ER (GLUCOPHAGE-XR) 500 MG 24 hr tablet Take 1 tablet (500 mg total) by mouth daily with breakfast. 07/15/2022 Active sertraline (ZOLOFT) 100 MG tablet Take 1 tablet (100 mg total) by mouth daily. 07/15/2022 Active multivitamin (THERA) tablet Take 1 tablet by mouth daily. Active vitamin B-12 (CYANOCOBALAMIN ) 500 MCG tablet Take 1 tablet (500 mcg total) by mouth daily. Active vitamin D3 (CHOLECALCIFERO L) 25 mcg tablet Take 1 tablet (25 mcg total) by mouth daily. Active ibuprofen (MOTRIN) 200 MG tablet Take 1-2 tablets (200-400 mg total) by mouth every 6 (six) hours as needed for Pain or Fever. Active acetaminophen (TYLENOL) 325 MG tablet Take 2 tablets (650 mg total) by mouth every 6 (six) hours as needed for Pain or Fever. Active Immunizations Name Administration Dates Next Due MODERNA COVID-19 (12+) MRNA, LNP-S, PF, 100 MCG/ 0.5 ML DOSE 07/04/2020,06/06/2020 Social History Tobacco Use Types Packs/Day Years Used Date Smoking Tobacco: Never Smokeless Tobacco: Never Tobacco Cessation:Counseling Given: Not Answered Alcohol Use Standard Drinks/Week Comments Yes 0 (1 standard drink = 0.6 oz pur e alcohol) Rarely Sex and Gender Information Value Date Recorded Sex Assigned at Not on file Legal Sex Male 8:28 PM CDT Gender Identity Not on file Sexual Orientation Not on file Last Filed Vital Signs Vital Sign Reading Time Taken Comments Blood Pressure 140/75 08/26/2022 6:18 PM CDT Pulse 58 08/26/2022 6:18 PM CDT Temperature 36.9 C (98.5 F) 08/26/2022 6:18 PM CDT Respiratory Rate 20 08/26/2022 6:18 PM CDT Oxygen Saturation 96% 08/26/2022 5:00 PM CDT Inhaled Oxygen Concentration - - Weight 138.3 kg (305 lb) 08/26/2022 9:47 AM CDT Height 193 cm (6' 4 ) 08/26/2022 9:47 AM CDT Body Mass Index 37.13 08/26/2022 9:47 AM CDT Plan of Treatment Health Maintenance Due Date Last Done Comments Colorectal Cancer Screening Colonoscopy (10 Years) 1965 Annual Physical 09/16/1967 Hepatitis C 1982 Zoster Vaccines (1 of 2) 2014 COVID-19 Vaccine (3 2023-2 5 season) 2024 07/04/2020, 06/06/2020 Influenza Adult (#1) 2024 02/04/2021, 02/08/2018, 02/08/2015 DTaP, Tdap and Td Vaccines ( 2 - Td or Tdap) 06/11/2028 06/11/2018 Meningococcal B Vaccine Aged Out No l onger eligible based on patient's age to complete this topic Meningococcal Vaccine Aged Out No elliot eleazar eligible based on patient's age to complete this topic Pneumococcal Vaccine: Pediatrics (0 to 5 Years) and At-Risk Patients (6 to 64 Years) Aged Out No longer eligible b ased on patient's age to complete this topic RSV Immunizations Under 20 Months Aged Out No longer eligible b ased on patient's age to complete this topic Insurance [facility] Advance Directives Documents on File Type Date Recorded 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
--- OUTSIDE RECORDS SUMMARY | 2024-08-12 19:42 | XMS_ITS | Clinical Summary ---
Author Organization [id number] Address [address] [place] [address] Care Team Providers Care Tomography Technologist Name Role Phone Roque Bhandari MD, Victor Manuel Moseley Primary Care Provide r Allergies No known active allergies Medications aspirin [...] complication, without long-term current use of insulin ([facility]) Take 1 tablet (500 mg total) by mouth daily with breakfast 90 tablet 3 4 Active lancets miscIndications:T ype 2 diabetes mellitus without complication, without long-term current use of insulin ([facility]) 1 each by other route as directed 100 each 4 Active meloxicam (MOBIC) 15 mg tablet Take 1 tablet (15 mg total) by mouth daily 4 Active semaglutide 0.25 mg or 0.5 mg (2 mg/3 mL) pen injector injectionIndicati ons:Type 2 diabetes mellitus without complication, without long-term current use of insulin ([facility]) Inject 0.5 mg under the skin every [...] 03/23/2024 Assessment & Plan (03/23/2024 8:14 AM CONFORMAL PAD FORMER): Dx by chirporactic and seeing surgeon at [place] for follow up Started on mobic Special [...] vaccines Assessment & Plan (03/26/2023 11:31 AM CONFORMAL PAD FORMER): Reviewed labs, screenings and vaccines Assessment & Plan (01/16/2022 2:31 PM CDT): Reviewed labs Waiting to do colonguard Will shingle vaccine at outside facility [facility] access hospital 01/16/2022 Assessment & Plan (01/16/2022 2:33 PM CDT): Will try topical and oral benadryl Pure hypercholesterolemia 05/16/2021 Assessment & Plan (03/26/2023 11:31 AM CONFORMAL PAD FORMER): Chronic stable Well controlled Continue current prescribed medications at current dose Type 2 diabetes mellitus wit hout complication, without long-term current use of insulin 02/04/2021 Assessment & Plan (03/23/2024 8:13 AM CONFORMAL PAD FORMER): Controlled, will continue metformin but also will provide with ozempic-samples for better glycemia control Assessment & Plan (09/23/2023 11:04 AM CDT): Chronic stable Well controlled Continue current prescribed medications metofrmin, lisinoirl and at current dose Assessment & Plan (03/26/2023 11:31 AM CONFORMAL PAD FORMER): Chronic stable Well controlled Continue current prescribed [...] dose Assessment & Plan (03/26/2023 11:31 AM CONFORMAL PAD FORMER): Chronic stable Well controlled Continue current prescribed medications at current dose Assessment & Plan (02/04/2021 9:44 AM CDT): Continue lisinorpil and HCTZ Major depressive disorder wi th single episode, in full remission 02/04/2021 Assessment & Plan (09/23/2023 9:54 AM CDT): Chronic stable Well controlled Continue current prescribed medications zoloft at current dose Assessment & Plan (03/26/2023 11:31 AM CONFORMAL PAD FORMER): Chronic stable Well controlled Continue current prescribed [...] 4 Assessment & Plan (03/26/2023 11:31 AM CONFORMAL PAD FORMER): With Dm2 Monitor weight has been stbale Assessment & Plan (2022 3:46 PM CDT): With DM2 Monitor weight Assessment & Plan (01/16/2022 2:31 PM CDT): Is on rybelsus Lose some weight and then it came back on Assessment & Plan (10/08/2021 3:30 PM CDT): Did lose 10 lbs conitnue rybelsus Encounters Date Type Department Care Team Description 08/12/2024 Telephone [facility] [address] [place] [phone] Victor Manuel Nevarez Jr., MD Recommendation Request 06/24/2024 Telephone [facility] [address] [place] [address] [place] [phone] Victor Manuel Nevarez Jr., MD Medical Question/Miscellaneous from Last 3 Months Immunizations Immunization Administration Dates Next Due Influenza, Quadrivalent, Spl it, Preservative Free, Intramuscular 03/26/2023,02/04/2021,02/08/2018 Influenza, Trivalent, Preser vative Free, Intramuscular 03/23/2024,02/08/2015 Influenza, Unspecified 03/11/2022 Pneumococcal Conjugate Pcv20 03/26/2023 Tdap 06/11/2018 Surgical History Surgery Date Site/Laterality Comments CARPAL TUNNEL RELEASE SPINE SURGERY FOOT SURGERY Medical History Medical History Date Comments Diabetes mellitus (HCC) Arthritis Hypertension Cancer (HCC) Prostate cancer Anxiety Family History Medical History Relation Name Comments Cancer Father Diabetes Father Heart disease Father Hypertension Father Stroke Father Relation Name Status Comments Father Mother Alive Social History Tobacco Use Types Packs/Day Years [...] on file Legal Sex Male 6:34 AM CONFORMAL PAD FORMER Gender Identity Not on file Sexual Orientation Not on file Obstetrics History Last Filed Vital Signs Vital Sign Reading Time Taken Comments Blood Pressure 160/72 03/23/2024 7:40 AM CONFORMAL PAD FORMER Pulse 60 03/23/2024 7:40 AM CONFORMAL PAD FORMER Temperature 36.4 C (97.6 F) 03/23/2024 7:40 AM CONFORMAL PAD FORMER Respiratory Rate 18 03/23/2024 7:40 AM CONFORMAL PAD FORMER Oxygen Saturation 96% 03/23/2024 7:40 AM CONFORMAL PAD FORMER Inhaled Oxygen Concentration - - Weight 138.3 kg (305 lb) 03/23/2024 7:40 AM CONFORMAL PAD FORMER Height 193 cm (6' 4 ) 03/23/2024 7:40 AM CONFORMAL PAD FORMER Body Mass Index 37.13 03/23/2024 7:40 AM CONFORMAL PAD FORMER Plan of Treatment Health Maintenance Due Date Last Done Comments Hepatitis B Screening 1982 Zoster Vaccine (1 of 2) 2014 Covid-19 Vaccine (3 - 2023-2 5 season) 2024 07/04/2020, 06/06/2020 Dilated Eye Exam 06/03/2024 06/03/2023, 03/03/2022 Foot Exam 07/03/2024 07/03/2023, 09/0 12/2021, 01/16/2022 Hemoglobin A1C 09/20/2024 03/23/2024, 09/08, 03/26/2023, Additional history exists Regular Well Visit/Exam 18-64 09/22/2024, 03/26/2023, 01/16/2022, Additional history exists Albumin Creatinine Ratio, Urine 03/23/2025 , 07/15/2022 Depression Screening 03/23/2025 03/23/2024, 09/23/2023, 05/26/2023, Additional history exists Lipid Panel 03/23/2025 03/23/2024, 03/11, 01/15/2022, Additional history exists eGFR 03/23/2025 03/23/2024, 03/11, 07/15/2022, Additional history exists DTaP/Tdap/Td Vaccine (2 - Td or Tdap) 06/11/2028 06/11/2018 Colon Cancer Screening-Colonoscopy 02/14/2034 02/15/2024 Hepatitis C Screening Completed 02/07/2021 Pneumococcal vaccine <65 Completed 03/26/2023 Colon Cancer Screening-CT Colonography Discontinued 02/15/2024 Colon Cancer Screening-DNA Stool Discontinued 02/15/20 Colon Cancer Screening-FIT Discontinued 02/15/2024 Colon Cancer Screening-Sigmoidoscopy Discontinued 02/15/2024 Influenza Vaccine Completed 03/23/2024, , 03/11/2022, Additional history exists Prostate Cancer Screening-PSA Discontinued , 03/26/2023, 01/15/2022 Procedures Procedure Name Priority Date/Time Associated Diagnosis Comments EGFR Routine 03/23/2024 8:26 AM CONFORMAL PAD FORMER Type 2 diabetes mellitus without complication, without long-term current use of insulin (HCC) LIPID PANEL Routine 03/23/2024 8:26 AM CONFORMAL PAD FORMER Type 2 diabetes mellitus without complication, without long-term current use of insulin (HCC) ALBUMIN CREATININE RATIO, URINE Routine 03/23/2024 8:26 AM CONFORMAL PAD FORMER Type 2 diabetes mellitus without complication, without long-term current use of insulin (HCC) PSA SCREEN Routine 03/23/2024 8:26 AM CONFORMAL PAD FORMER Preventative health care POCT HEMOGLOBIN A1C Routine 03/23/2024 7 :49 AM CONFORMAL PAD FORMER Type 2 diabetes mellitus without complication, without long-term current use of insulin (HCC) COLONOSCOPY 02/15/2024 9:18 AM CDT DIABETES FOOT EXAM Routine 07/03/2023 DIABETES EYE EXAM Routine 06/03/2023 HEPATITIS C ANTIBODY Routine 02/07/2021 8:15 AM CDT Preventative health care from Last 3 Months or Most Recently Relevant to Health Maintenance Results * eGFR (03/23/2024 8:26 AM CONFORMAL PAD FORMER) eGFR >90 >=60 mL/min/1. 73 m2 Comment: [...] was last reviewed 2021. Testing performed by: [address] [address] Blood 03/23/2024 8:26 AM CONFORMAL PAD FORMER 03/23/2024 9:43 AM CONFORMAL PAD FORMER Victor Manuel Nevarez Jr., MD LAB BLOOD ORDERABLES Final Result Performing Organization Address [facility] Co de Phone Number [address] [place] [address] * PSA screen (03/23/2024 8:26 AM CONFORMAL PAD FORMER) PSA-Total 0.11 <=3.90 ng/mL Comment: Interpretive Data AGE SEX REFERENCE INTERVAL 0 minutes-150 years Female None 0 minutes-49 years Male None 50-59 years Male 0-3.90 60-69 years Male 0-5.40 70-79 years Male 0-6.20 80-150 years Male 0-6.20 The Backand PSA Total assay procedure was used. Results from different manufacturers or methods may not be comparable. Serial testing should be performed using the same method. Current interpretive data last revised 21. Testing performed by: [address] [address] Blood 03/23/2024 8:26 AM CONFORMAL PAD FORMER 03/23/2024 9:43 AM CONFORMAL PAD FORMER Victor Manuel Nevarez Jr., MD LAB BLOOD ORDERABLES Final Result Performing Organization Address [facility] de Phone Number [address] [address] * Albumin Creatinine Ratio, Urine (03/23/2024 8:26 AM CONFORMAL PAD FORMER) Albumin Ur <12.0 mg/L Comment: Interpretive Data No reference range established. Current interpretive data was last revised 2018. Testing performed by: [address] [address] Creatinine Ur 134.5 mg/dL DA Comment: Interpretive Data No reference range established. Current interpretive data was last revised 2018. Testing performed by: [address] [address] Albumin Creatinine Ratio, Ur <9 1 - 29 mg/g DA Comment:Testing performed by : [address] [address] Urine 03/23/2024 8:26 AM CONFORMAL PAD FORMER 03/23/2024 9:54 AM CONFORMAL PAD FORMER Victor Manuel Nevarez Jr., MD LAB URINE ORDERABLES Final Result Performing Organization Address City/State/[facility] Co de Phone Number [facility] [address] [facility] Department [place] [address] * (ABNORMAL) Lipid panel (03/23/2024 8:26 AM CONFORMAL PAD FORMER) Cholesterol 207(H) 30 - 199 mg/dL Comment: [...] last revised on 2017. Testing performed by: [address] [address] Triglycerides 85 <=149 mg/dL DA Comment: Interpretive Data Ages < or = [...] last revised on 2017. Testing performed by: [address] [address] HDL 68 >=40 mg/dL DA Comment: Interpretive Data Ages < or = [...] last revised on 2017. Testing performed by: [address] [address] LDL, calculated 124 <=129 mg/dL DA Comment: Interpretive Data Ages < or = [...] last revised on 2023. Testing performed by: [address] [address] Non-HDL Cholesterol 139 mg/dL DA Comment: Interpretive Data Ages < or = [...] last revised on 2017. Testing performed by: [address] [address] Chol/HDL ratio 3 DA Comment:Testing performed by : [address] [address] Blood 03/23/2024 8:26 AM CONFORMAL PAD FORMER 03/23/2024 9:43 AM CONFORMAL PAD FORMER us Victor Manuel Nevarez Jr., MD LAB BLOOD ORDERABLES Final Result [facility] [address] [facility] Department [place] [address] * POCT hemoglobin A1c (03/23/2024 7:49 AM CONFORMAL PAD FORMER) Hemoglobin A1C, POC 5.9 4.0 - 5.6 % Capillary blood 03/23/2024 7 :49 AM CONFORMAL PAD FORMER us Victor Manuel Nevarez Jr., MD POINT OF CARE TEST OR DERABLES Final Result * Colonoscopy (02/15/2024 9:18 AM CDT) Anatomical Region Laterality Modality Other Narrative Procedure Note Jorge Lee MD - 02/15/2024 9:18 AM CDT [facility] GI ENDOSCOPY Patient Name: Aditya Benitez Procedure Date: 02/15/2024 9:18 AM Date of : 1965 Admit Type: Outpatient Age: 58 Gender: Male Attending MD: Jorge Lee M.D. Room: [facility] ENDOSCOPY ROOM 05 Note Status: Finalized [...] bowel preparation was evaluated using the BBPS ([place] Bowel Preparation Scale) with scores of:Right Colon [...] On: 02/15/2024 9:18 AM Recognized by the [place] [employer] for promoting quality in endoscopy us Jorge Lee MD ENDOSCOPY PROCEDURES Fin al Result * DIABETES FOOT EXAM (07/03/2023) SCRIBED DIABETIC FOOT EXAM Normal Historical Provider HEALTH MAINTENANCE Final Result * (ABNORMAL) DIABETES EYE EXAM (06/03/2023) SCRIBED DIABETIC DILATED EYE EXAM Abnormal Historical Provider HEALTH MAINTENANCE Edited Result - Final * Hepatitis C antibody (02/07/2021 8:15 AM CDT) Hep C Ab Nonreactive Nonreactive DA Comment: Interpretive Data Nonreactive: Antibodies to HCV [...] Manuel Nevarez Jr., MD LAB MICROBIOLOGY - [facility] ORDERABLES Final Result [address] [facility] Department [place] [address] from Last 3 Months or Most Recently Relevant to Health Maintenance Insurance [facility] H[facility]/PPO Address: [address] [address] [place] [address] [facility] CHOICE PLUS [facility] HMO/PPO Address: [address] [address] [place] [address] [facility] H[facility]/PPO Address: [address] [address] [place] [address] Care Teams Tomography Technologist Relationship Specialty Start Date End Date Victor Manuel Nevarez Jr., MD [address] [place] [id number] PCP - General Internal Medicine 02/04/21
--- OUTSIDE RECORDS SUMMARY | 2024-08-12 19:42 | XMS_ITS | Patient Health Record ---
Author Organization [facility] Address [address] [facility] [address] [place] [address] Care Team Providers Care Information Delivery Analyst Name Role Phone Victor Manuel Nevarez Primary Care Provider Unavailab Radames Alexander Unavailable [phone] Meg Ag Unavailable [phone] ALLERGIES No Known Allergies RESULTS Component Value Reference Range Notes X ray : Thoracic Spine 3 vie ws, AP, Lateral, Swimmers Reviewed date:03/17/2024 07:54:53 AM Interpretation:946 Performing Lab: Notes/Report: 946 X ray : Lumbar Spine 3 views , AP, Lateral, Spot Reviewed date:03/17/2024 07:55:18 AM Interpretation:946 Performing Lab: Notes/Report: 946 Thoracic and Lumbar MRI with out contrast Reviewed date:05/03/2024 08:31:30 AM Interpretation:completed Performing Lab: Notes/Report: completed REASON FOR REFERRAL Reason Eval and Treat Lumba r Stabilization Program, Focus on HEP of lumbar and abdominal strengthening Thoracic stabilitzation program,focus on home exercising program, Thoracic isometrics Diagnosis 1 Low back pain at [facility] (M54.50) Diagnosis 2 Thoracic back pain ( M54.6) Referral Organization [facility] Referring Provider First Name Meg Referring Provider Last Name Ancelmo Referring Provider Speciality Nurse Prac titioner Referred Provider Specialty Physical The rapy Referral Priority Routine MEDICATIONS Medication SIG (Take, Route, Frequency, Duration) Notes Start Date End Date Status Aspirin Active Baclofen Active Medrol (Cecil) as directed Orally a s directed for 6 days 03/16/2024 Active Meloxicam 15 MG 1 tablet Orally Once a day for 30 day(s) 03/16/2024 Active traZODone HCl Active Sertraline HCl Activ e Lipoic Acid Active Vitamin D Active Lisinopril-hydroCHLOROthia zide Active metFORMIN HCl Active Diclofenac Active SOCIAL HISTORY Tobacco Use: Social History Observation Description Date Details (start date - stop date) Never Smoker NA - NA Sex Assigned At : Social History Observation Description Sex Assigned At Unknown Tobacco Use/Smoking Question Answer Notes Are you a nonsmoker VITAL SIGNS Height 76 in 03/16/2024 Weight 298 lbs 03/16/2024 BMI 36.27 kg/m2 03/16/2024 Encounters Encounter Location Date Provider Diagnosis [facility] [address] [place] [address] 03/16/2024 Meg Ag Thoracic back pain M54.6 and Other low back pain M54.59 [facility] [address] [facility] [address] [place] [address] 04/28/2024 Radames Milian Other low back pain M54.59 and Thoracic back pain M54.6 ASSESSMENTS Encounter Date Diagnosis Assessment Notes Treatment Notes Treatment Clinical Notes 03/16/2024 Thoracic back pain (ICD-10 - M54.6) 03/16/2024 Other low back pain (ICD-10 - M54.59) 04/28/2024 Other low back pain (ICD-10 - M54.59) 04/28/2024 Thoracic back pain (ICD-10 - M54.6) PLAN OF TREATMENT No Information Insurance Providers Payer Name Payer Address Payer Phone Subscriber Number Group Number Insured Name Patient Relationship to Insured Coverage Start Date Coverage End Date [facility] [address] [address] [facility] [place] [address] [phone] [id number] Aditya Benitez Self - patient is the insured MEDICAL (GENERAL) HISTORY Medical History History ICD Code Hypertension Depression/Anxiety Prostate Cancer Sleep Apnea Diabetes Surgical History Surgery Date(Month/Year) Lumbar Surgery x 2 Left Foot Surgery Prostatectomy Left Carpal Tunnel Release Hospitalization History Reason Date(Month/Year) As per above.
[2024-08-12 19:53] VITALS: BP 218/75; PULSE 64; RESP 14; TEMP 37.1; O2SAT 98
--- OUTSIDE RECORDS SUMMARY | 2024-08-12 20:10 | XMS_ITS | Clinical Summary ---
Author Organization [place] [id number] Cross Address [address] [place] [address] Care Team Providers Care Quality Improvement Consultant Name Role Phone Roque Bhandari MD, Victor [...] without long-term current use of insulin ([facility]) Take 1 tablet (500 mg total) by mouth daily with breakfast 90 tablet 3 4 Active lancets miscIndications:T ype 2 diabetes mellitus without complication, without long-term current use of insulin ([facility]) 1 each by other route as directed 100 each 4 Active meloxicam (MOBIC) 15 mg tablet Take 1 tablet (15 mg total) by mouth daily 4 Active semaglutide 0.25 mg or 0.5 mg (2 mg/3 mL) pen injector injectionIndicati ons:Type 2 diabetes mellitus without complication, without long-term current use of insulin ([facility]) Inject 0.5 mg under the skin every [...] 03/23/2024 Assessment & Plan (03/23/2024 8:14 AM GRANULATING BLENDER): Dx by chirporactic and seeing surgeon at [facility] for follow up Started on mobic Special [...] vaccines Assessment & Plan (03/26/2023 11:31 AM GRANULATING BLENDER): Reviewed labs, screenings and vaccines Assessment & Plan (01/16/2022 2:31 PM CDT): Reviewed labs Waiting to do colonguard Will shingle vaccine at outside facility [facility] 01/16/2022 Assessment & Plan (01/16/2022 2:33 PM CDT): Will try topical and oral benadryl Pure hypercholesterolemia 05/16/2021 Assessment & Plan (03/26/2023 11:31 AM GRANULATING BLENDER): Chronic stable Well controlled Continue current prescribed medications at current dose Type 2 diabetes mellitus wit hout complication, without long-term current use of insulin 02/04/2021 Assessment & Plan (03/23/2024 8:13 AM GRANULATING BLENDER): Controlled, will continue metformin but also will provide with ozempic-samples for better glycemia control Assessment & Plan (09/23/2023 11:04 AM CDT): Chronic stable Well controlled Continue current prescribed medications metofrmin, lisinoirl and at current dose Assessment & Plan (03/26/2023 11:31 AM GRANULATING BLENDER): Chronic stable Well controlled Continue current prescribed [...] dose Assessment & Plan (03/26/2023 11:31 AM GRANULATING BLENDER): Chronic stable Well controlled Continue current prescribed medications at current dose Assessment & Plan (02/04/2021 9:44 AM CDT): Continue lisinorpil and HCTZ Major depressive disorder wi th single episode, in full remission 02/04/2021 Assessment & Plan (09/23/2023 9:54 AM CDT): Chronic stable Well controlled Continue current prescribed medications zoloft at current dose Assessment & Plan (03/26/2023 11:31 AM GRANULATING BLENDER): Chronic stable Well controlled Continue current prescribed [...] 4 Assessment & Plan (03/26/2023 11:31 AM GRANULATING BLENDER): With Dm2 Monitor weight has been stbale Assessment & Plan (2022 3:46 PM CDT): With DM2 Monitor weight Assessment & Plan (01/16/2022 2:31 PM CDT): Is on rybelsus Lose some weight and then it came back on Assessment & Plan (10/08/2021 3:30 PM CDT): Did lose 10 lbs conitnue rybelsus Encounters Date Type Department Care Team Description 08/12/2024 Telephone [facility] Primary Care [address] [place] [phone] Victor Manuel Nevarez Jr., MD Recommendation Request 06/24/2024 Telephone [facility] Primary Care [address] [place] [address] [place] [phone] Victor Manuel Nevarez Jr., MD Medical [...] on file Legal Sex Male 6:34 AM GRANULATING BLENDER Gender Identity Not on file Sexual Orientation Not on file Obstetrics History Last Filed Vital Signs Vital Sign Reading Time Taken Comments Blood Pressure 160/72 03/23/2024 7:40 AM GRANULATING BLENDER Pulse 60 03/23/2024 7:40 AM GRANULATING BLENDER Temperature 36.4 C (97.6 F) 03/23/2024 7:40 AM GRANULATING BLENDER Respiratory Rate 18 03/23/2024 7:40 AM GRANULATING BLENDER Oxygen Saturation 96% 03/23/2024 7:40 AM GRANULATING BLENDER Inhaled Oxygen Concentration - - Weight 138.3 kg (305 lb) 03/23/2024 7:40 AM GRANULATING BLENDER Height 193 cm (6' 4 ) 03/23/2024 7:40 AM GRANULATING BLENDER Body Mass Index 37.13 03/23/2024 7:40 AM GRANULATING BLENDER Plan of Treatment Health Maintenance Due Date [...] Diagnosis Comments EGFR Routine 03/23/2024 8:26 AM GRANULATING BLENDER Type 2 diabetes mellitus without complication, without long-term current use of insulin (HCC) LIPID PANEL Routine 03/23/2024 8:26 AM GRANULATING BLENDER Type 2 diabetes mellitus without complication, without long-term current use of insulin (HCC) ALBUMIN CREATININE RATIO, URINE Routine 03/23/2024 8:26 AM GRANULATING BLENDER Type 2 diabetes mellitus without complication, without long-term current use of insulin (HCC) PSA SCREEN Routine 03/23/2024 8:26 AM GRANULATING BLENDER Preventative health care POCT HEMOGLOBIN A1C Routine 03/23/2024 7 :49 AM GRANULATING BLENDER Type 2 diabetes mellitus without complication, without long-term current use of insulin (HCC) COLONOSCOPY 02/15/2024 9:18 AM CDT DIABETES FOOT EXAM Routine 07/03/2023 DIABETES EYE EXAM Routine 06/03/2023 HEPATITIS C ANTIBODY Routine 02/07/2021 8:15 AM CDT Preventative health care from Last 3 Months or Most Recently Relevant to Health Maintenance Results * eGFR (03/23/2024 8:26 AM GRANULATING BLENDER) eGFR >90 >=60 mL/min/1. 73 m2 Comment: [...] was last reviewed 2021. Testing performed by: [address] [address] Blood 03/23/2024 8:26 AM GRANULATING BLENDER 03/23/2024 9:43 AM GRANULATING BLENDER Victor Manuel Nevarez Jr., MD LAB BLOOD ORDERABLES Final Result Performing Organization Address [facility] Co de Phone Number [address] [place] [address] * PSA screen (03/23/2024 8:26 AM GRANULATING BLENDER) PSA-Total 0.11 <=3.90 ng/mL Comment: Interpretive Data AGE SEX REFERENCE INTERVAL 0 minutes-150 years Female None 0 minutes-49 years Male None 50-59 years Male 0-3.90 60-69 years Male 0-5.40 70-79 years Male 0-6.20 80-150 years Male 0-6.20 The [employer] PSA Total assay procedure was used. Results from different manufacturers or methods may not be comparable. Serial testing should be performed using the same method. Current interpretive data last revised 21. Testing performed by: [address] [address] Blood 03/23/2024 8:26 AM GRANULATING BLENDER 03/23/2024 9:43 AM GRANULATING BLENDER Victor Manuel Nevarez Jr., MD LAB BLOOD ORDERABLES Final Result Performing Organization Address [facility] de Phone Number [address] [address] * Albumin Creatinine Ratio, Urine (03/23/2024 8:26 AM GRANULATING BLENDER) Albumin Ur <12.0 mg/L Comment: Interpretive Data No reference range established. Current interpretive data was last revised 2018. Testing performed by: [address] [address] Creatinine Ur 134.5 mg/dL DA Comment: Interpretive Data No reference range established. Current interpretive data was last revised 2018. Testing performed by: [address] [address] Albumin Creatinine Ratio, Ur <9 1 - 29 mg/g DA Comment:Testing performed by : [address] [address] Urine 03/23/2024 8:26 AM GRANULATING BLENDER 03/23/2024 9:54 AM GRANULATING BLENDER Victor Manuel Nevarez Jr., MD LAB URINE ORDERABLES Final Result Performing Organization Address City/State/[facility] Co de Phone Number DA [address] [facility] Department [place] [address] * (ABNORMAL) Lipid panel (03/23/2024 8:26 AM GRANULATING BLENDER) Cholesterol 207(H) 30 - 199 mg/dL Comment: [...] last revised on 2017. Testing performed by: [address] [address] Triglycerides 85 <=149 mg/dL DA Comment: Interpretive [...] last revised on 2017. Testing performed by: [address] [address] HDL 68 >=40 mg/dL DA Comment: Interpretive [...] last revised on 2017. Testing performed by: [address] [address] LDL, calculated 124 <=129 mg/dL DA Comment: [...] last revised on 2023. Testing performed by: [address] [address] Non-HDL Cholesterol 139 mg/dL DA Comment: Interpretive [...] last revised on 2017. Testing performed by: [address] [address] Chol/HDL ratio 3 DA Comment:Testing performed by : [address] [address] Blood 03/23/2024 8:26 AM GRANULATING BLENDER 03/23/2024 9:43 AM GRANULATING BLENDER us Victor Manuel Nevarez Jr., MD LAB BLOOD ORDERABLES Final Result DA [address] [facility] Department [place] [address] * POCT hemoglobin A1c (03/23/2024 7:49 AM GRANULATING BLENDER) Hemoglobin A1C, POC 5.9 4.0 - 5.6 % Capillary blood 03/23/2024 7 :49 AM GRANULATING BLENDER us Victor Manuel Nevarez Jr., MD POINT OF CARE TEST OR DERABLES Final Result * Colonoscopy (02/15/2024 9:18 AM CDT) Anatomical Region Laterality Modality Other Narrative Procedure Note Jorge Lee MD - 02/15/2024 9:[address] [facility] GI ENDOSCOPY Patient Name: Aditya Benitez Procedure Date: 02/15/2024 9:18 AM Date of : 1965 Admit Type: Outpatient Age: 58 Gender: Male Attending MD: Jorge Lee M.D. Room: [facility] ENDOSCOPY ROOM 05 Note Status: Finalized Procedure: [...] bowel preparation was evaluated using the BBPS ([place] Bowel Preparation Scale) with scores of:Right Colon [...] On: 02/15/2024 9:18 AM Recognized by the [place] Gastrointestinal Endoscopy for promoting quality [...] Manuel Nevarez Jr., MD LAB MICROBIOLOGY - [facility] ORDERABLES Final Result DA [address] [facility] Department [place] [address] from Last 3 Months or Most Recently Relevant to Health Maintenance Insurance [facility] H[facility]/PPO Address: [address] [address] [place] [address] [facility] [employer] [facility] H[facility]/PPO Address: [address] [address] [place] [address] [facility] [employer]/PPO Address: [address] [address] [place] [address] Care Teams Quality Improvement Consultant Relationship Specialty Start Date End Date Victor Manuel Nevarez Jr., MD [address] [place] [phone] PCP - General Internal Medicine 02/04/21
--- OUTSIDE RECORDS SUMMARY | 2024-08-12 20:10 | XMS_ITS | Encounter Summary ---
Author Organization [facility] Healthcare Address [address] [place] [address] Care Team Providers Care Patient Financial Services Manager Name Role Phone Roque Bhandari MD, Victor Manuel Moseley Primary Care Provide r Reason for Referral * Consultation (Routine) - Pending Review Specialty Diagnoses / Procedures Referred By Contac t Referred To Contact Pain Management Diagnoses Chronic bilateral low back pain without sciatica Victor Manuel Nevarez Jr., MD [address] [place] [id number] Phone: tel: fax: Terence Bush MD [address] [place] [address] Phone: tel: fax: Referral ID Status Reason Start Date Expiration Date Visits Requested Visits Authorized [id number] Pending Review Specialty Services Required 08/12/2024 09/11/2025 1 1 Question Answer Please select the performing region: External Order [171] To loc/pos [facility] [[id number]] To provider: TERENCE BUSH [[id number]] # of visits: 1 Reason for Visit * Reason Onset Date Comments Recommendation Request 08/12/2024 Encounter Details Date Type Department Care Team ([facility] st Contact Info) Description 08/12/2024 Telephone [facility] Primary Care [address] [place] [phone] Victor Manuel Nevarez Jr., MD [address] [place] [phone] Recommendation Request Social History Tobacco Use Types [...] on file Legal Sex Male 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 Specialty: pain management Why does the patient want to go to this specialist? Back pain Additional Comments/Concerns: Patient states he has talked to Dr. Nevarez about pain before. He said he wants to go to one in [place], but couldn't give me any information on [...] Primary documented in this encounter Care Teams Patient Financial Services Manager Relationship Specialty Start Date End Date Victor Manuel Nevarez Jr., MD [address] [place] [id number] PCP - General Internal Medicine 02/04/21 documented as of this encounter
--- OUTSIDE RECORDS SUMMARY | 2024-08-12 20:10 | XMS_ITS | Referral Summary ---
Author Organization [place] [id number] Address [address] [place] [phone] Care Team Providers Care Drilling Machine Operator Name Role Phone Roque Bhandari MD, Victor Manuel Moseley Primary Care Provide r Encounters Date Type Department Care Team Description 08/12/2024 Telephone [facility] Primary Care [address] [place] [phone] Victor Manuel Nevarez Jr., MD Recommendation Request 06/24/2024 Telephone [facility] Primary Care [address] [place] [phone] Victor Manuel Nevarez Jr., MD Medical [...] without long-term current use of insulin ([facility]) Take 1 tablet (500 mg total) by mouth daily with breakfast 90 tablet 3 4 Active lancets miscIndications:T ype 2 diabetes mellitus without complication, without long-term current use of insulin ([facility]) 1 each by other route as directed 100 each 4 Active meloxicam (MOBIC) 15 mg tablet Take 1 tablet (15 mg total) by mouth daily 4 Active semaglutide 0.25 mg or 0.5 mg (2 mg/3 mL) pen injector injectionIndicati ons:Type 2 diabetes mellitus without complication, without long-term current use of insulin ([facility]) Inject 0.5 mg under the skin every [...] 03/23/2024 Assessment & Plan (03/23/2024 8:14 AM TAR ROOFER): Dx by chirporactic and seeing surgeon at [facility] for follow up Started on mobic Special [...] vaccines Assessment & Plan (03/26/2023 11:31 AM TAR ROOFER): Reviewed labs, screenings and vaccines Assessment & Plan (01/16/2022 2:31 PM CDT): Reviewed labs Waiting to do colonguard Will shingle vaccine at outside facility [facility] 01/16/2022 Assessment & Plan (01/16/2022 2:33 PM CDT): Will try topical and oral benadryl Pure hypercholesterolemia 05/16/2021 Assessment & Plan (03/26/2023 11:31 AM TAR ROOFER): Chronic stable Well controlled Continue current prescribed medications at current dose Type 2 diabetes mellitus wit hout complication, without long-term current use of insulin 02/04/2021 Assessment & Plan (03/23/2024 8:13 AM TAR ROOFER): Controlled, will continue metformin but also will provide with ozempic-samples for better glycemia control Assessment & Plan (09/23/2023 11:04 AM CDT): Chronic stable Well controlled Continue current prescribed medications metofrmin, lisinoirl and at current dose Assessment & Plan (03/26/2023 11:31 AM TAR ROOFER): Chronic stable Well controlled Continue current prescribed [...] dose Assessment & Plan (03/26/2023 11:31 AM TAR ROOFER): Chronic stable Well controlled Continue current prescribed medications at current dose Assessment & Plan (02/04/2021 9:44 AM CDT): Continue lisinorpil and HCTZ Major depressive disorder wi th single episode, in full remission 02/04/2021 Assessment & Plan (09/23/2023 9:54 AM CDT): Chronic stable Well controlled Continue current prescribed medications zoloft at current dose Assessment & Plan (03/26/2023 11:31 AM TAR ROOFER): Chronic stable Well controlled Continue current prescribed [...] 4 Assessment & Plan (03/26/2023 11:31 AM TAR ROOFER): With Dm2 Monitor weight has been stbale [...] on file Legal Sex Male 6:34 AM TAR ROOFER Gender Identity Not on file Sexual Orientation Not on file Last Filed Vital Signs Vital Sign Reading Time Taken Comments Blood Pressure 160/72 03/23/2024 7:40 AM TAR ROOFER Pulse 60 03/23/2024 7:40 AM TAR ROOFER Temperature 36.4 C (97.6 F) 03/23/2024 7:40 AM TAR ROOFER Respiratory Rate 18 03/23/2024 7:40 AM TAR ROOFER Oxygen Saturation 96% 03/23/2024 7:40 AM TAR ROOFER Inhaled Oxygen Concentration - - Weight 138.3 kg (305 lb) 03/23/2024 7:40 AM TAR ROOFER Height 193 cm (6' 4 ) 03/23/2024 7:40 AM TAR ROOFER Body Mass Index 37.13 03/23/2024 7:40 AM TAR ROOFER Plan of Treatment Not on file Procedures Procedure Name Priority Date/Time Associated Diagnosis Comments EGFR Routine 03/23/2024 8:26 AM TAR ROOFER Type 2 diabetes mellitus without complication, without long-term current use of insulin (HCC) LIPID PANEL Routine 03/23/2024 8:26 AM TAR ROOFER Type 2 diabetes mellitus without complication, without long-term current use of insulin (HCC) ALBUMIN CREATININE RATIO, URINE Routine 03/23/2024 8:26 AM TAR ROOFER Type 2 diabetes mellitus without complication, without long-term current use of insulin (HCC) PSA SCREEN Routine 03/23/2024 8:26 AM TAR ROOFER Preventative health care POCT HEMOGLOBIN A1C Routine 03/23/2024 7 :49 AM TAR ROOFER Type 2 diabetes mellitus without complication, without long-term current use of insulin (HCC) COLONOSCOPY 02/15/2024 9:18 AM CDT DIABETES FOOT EXAM Routine 07/03/2023 DIABETES EYE EXAM Routine 06/03/2023 HEPATITIS C ANTIBODY Routine 02/07/2021 8:15 AM CDT Preventative health care from Last 3 Months or Most Recently Relevant to Health Maintenance Results * eGFR (03/23/2024 8:26 AM TAR ROOFER) eGFR >90 >=60 mL/min/1. 73 m2 Comment: [...] was last reviewed 2021. Testing performed by: [address] [address] Blood 03/23/2024 8:26 AM TAR ROOFER 03/23/2024 9:43 AM TAR ROOFER Victor Manuel Nevarez Jr., MD LAB BLOOD ORDERABLES Final Result Performing Organization Address [facility] de Phone Number DA [address] [place] [address] * PSA screen (03/23/2024 8:26 AM TAR ROOFER) PSA-Total 0.11 <=3.90 ng/mL Comment: Interpretive Data [...] data last revised 21. Testing performed by: [address] [address] Blood 03/23/2024 8:26 AM TAR ROOFER 03/23/2024 9:43 AM TAR ROOFER us Victor Manuel Nevarez Jr., MD LAB BLOOD ORDERABLES Final Result Performing Organization Address [facility] de Phone Number [address] [place] [address] * Albumin Creatinine Ratio, Urine (03/23/2024 8:26 AM TAR ROOFER) Albumin Ur <12.0 mg/L Comment: Interpretive Data No reference range established. Current interpretive data was last revised 2018. Testing performed by: [address] [address] Creatinine Ur 134.5 mg/dL DA GEORGE Comment: Interpretive Data No reference range established. Current interpretive data was last revised 2018. Testing performed by: [address] [address] Albumin Creatinine Ratio, Ur <9 1 - 29 mg/g DA GEORGE Comment:Testing performed by : [address] [address] Urine 03/23/2024 8:26 AM TAR ROOFER 03/23/2024 9:54 AM TAR ROOFER us Victor Manuel Nevarez Jr., MD LAB URINE ORDERABLES Final Result DA [address] [facility] Department of Laboratories [place], [place] [id number] * (ABNORMAL) Lipid panel (03/23/2024 8:26 AM TAR ROOFER) Cholesterol 207(H) 30 - 199 mg/dL Comment: [...] last revised on 2017. Testing performed by: [address] [address] Triglycerides 85 <=149 mg/dL DA GEORGE Comment: [...] last revised on 2017. Testing performed by: [address] [address] HDL 68 >=40 mg/dL [facility] Comment: Interpretive Data Ages < or = [...] last revised on 2017. Testing performed by: [address] [address] LDL, calculated 124 <=129 mg/dL [facility] Comment: Interpretive Data Ages < or = [...] last revised on 2023. Testing performed by: [address] [address] Non-HDL Cholesterol 139 mg/dL DA GEORGE Comment: [...] last revised on 2017. Testing performed by: [address] [address] Chol/HDL ratio 3 DA Comment:Testing performed by : [address] [address] Blood 03/23/2024 8:26 AM TAR ROOFER 03/23/2024 9:43 AM TAR ROOFER us Victor Manuel Nevarez Jr., MD LAB BLOOD ORDERABLES Final Result [facility] [address] [facility] Department [place] [address] * POCT hemoglobin A1c (03/23/2024 7:49 AM TAR ROOFER) Hemoglobin A1C, POC 5.9 4.0 - 5.6 % Capillary blood 03/23/2024 7 :49 AM TAR ROOFER Victor Manuel Nevarez Jr., MD POINT OF CARE TEST OR DERABLES Final Result * Colonoscopy (02/15/2024 9:18 AM CDT) Anatomical Region Laterality Modality Other Narrative Procedure Note Jorge Lee MD - 02/15/2024 9:18 AM CDT [facility] GI ENDOSCOPY Patient Name: Aditya Benitez Procedure Date: 02/15/2024 9:18 AM Date of : 1965 Admit Type: Outpatient Age: 58 Gender: Male Attending MD: Jorge Lee M.D. Room: [facility] ENDOSCOPY ROOM 05 Note Status: Finalized [...] bowel preparation was evaluated using the BBPS ([place] Bowel Preparation Scale) with scores of:Right Colon [...] On: 02/15/2024 9:18 AM Recognized by the [place] [employer] for Gastrointestinal Endoscopy for promoting quality [...] Manuel Nevarez Jr., MD LAB MICROBIOLOGY - [facility] ORDERABLES Final Result DA [address] [facility] Department [place] [address] from Last 3 Months or Most Recently Relevant to Health Maintenance Insurance [facility] [place] [place] [address] [facility] Care Teams Drilling Machine Operator Relationship Specialty Start Date End Date Victor Manuel Nevarez Jr., MD [address] [place] [id number] PCP - General Internal Medicine 02/04/21
--- OUTSIDE RECORDS SUMMARY | 2024-08-12 20:10 | XMS_ITS | Clinical Summary ---
Author Organization [facility] Address [address] [place] [address] Care Team Providers Care Athletic Monitor Name Role Phone Roque Bhandari MD, Victor [...] patient's age to complete this topic Insurance [facility] Advance Directives Documents on File Type Date Recorded Patient Accounting Intern Expl anation Legal Documents 09/24/2022 4:04 PM Applica tion for Voluntary Admission 08/26/22 Care Teams Athletic Monitor Relationship Specialty Start Date End Date Victor Manuel Nevarez Jr., MD [address] [place] [id number] PCP - General HOSPITALIST 08/26/22
--- OUTSIDE RECORDS SUMMARY | 2024-08-12 20:10 | XMS_ITS | Patient Health Record ---
Author Organization [facility] Address [address] [place] [id number] Support Name Relationship Address Phone Aditya Benitez Guarantor Unknown [phone] Allergies No Known Allergies Reason For Referral No Information Medications Medication SIG (Take, Route, Frequency, Duration) Notes Start Date End Date Status metFORMIN HCl Active Lisinopril Active Medrol 4 MG as directed Orally O nce a day for 6 days Active HCTZ Active Semaglutide Not-Taki ng Diclofenac Not-Takin g Gabapentin Not-Takin g Sertraline HCl Activ e Atorvastatin Calcium Not-Taking Social History Tobacco Use: Social History Observation Description Date Details (start date - stop date) Never Smoker NA - NA Smoking Question Answer Notes Smoking Status: nonsmoker Problems Problem Type SNOMED Code ICD Code Onset Dates Problem Status W/U Status Risk Notes Problem Abnormal histology findings (766304248) Unsp abnormal finding in specimens from oth org/tiss (R89.9) Active confirmed Plan Of Treatment Pending Test Test Name Order Date Urinalysis, Routine 05/28/2021 Glucose Fingerstick (all others) 022 Celestone 12mg 03/31/2022 Vision Screening 05/28/2021 Hearing Screening 05/28/2021 PFT 05/28/2021 DOT DRUG SCREEN 05/28/2021 BTE 07/12/2021 BTE 04/11/2022 DRUG SCREEN 03/31/2022 RAPID READ DRUG SCREEN 04/11/2022 RAPID READ DRUG SCREEN 05/28/2021 LUMBAR SPINE 2 OR 3 VIEWS 03/31/2022 Toradol 60mg 03/31/2022 Insurance Providers Payer Name Payer Address Payer Phone Subscriber Number Group Number Insured Name Patient Relationship to Insured Coverage Start Date Coverage End Date Maicol [email or web address] Aditya Benitez Self - patient is the insured Maicol [address] Aditya Benitez Self - patient is the insured Maicol Grider PRE-EMP/RTW SIDRA Fernández [id number] Aditya Benitez Self - patient is the insured Medical (General) History Medical History History ICD Code chronic low back issues HTN high cholesterol diabetes anxiety sleep apnea-has c-pap 06/2018 Prostate CA Surgical History Surgery Date(Month/Year) low back sx-compressed disc 6 yrs ago low back sx-compressed disc 5 yrs ago Prostate removed 06/29 rt hand-carpal tunnel sx 2019 lt foot-sx-not cleared for release from surgeon til 06/08/21 03/30/21 Hospitalization History Reason Date(Month/Year) low back sx x2 Prostate removed 06/2018
[2024-08-12 20:30] VITALS: BP 156/64; PULSE 60; RESP 20; O2SAT 96
--- NOTE | 2024-08-12 20:52 | ED.BACK ---
HPI - Back Pain/Injury General Chief Complaint: Back Pain/Injury Stated Complaint: Back spasms-having trouble walking Time Seen by Provider: 08/12/24 20:02 Source: patient Limitations: physical limitation History of Present Illness HPI Narrative: Patient presents with low left sided back pain radiating into abdomen and left buttock pain with back spasms. It is causing him to have trouble walking. No history of kidney stones. No hematuria urinary urgency. It was this morning he denies any diarrhea, constipation, or bloody bowel movements. He did have her recent colonoscopy approximately 2 months ago. He has chronic back pain with multiple surgeries but no hardware/implantable devices (including no pacemaker). The pain does not radiate to his legs. He took a muscle spasm / muscle relaxer mediation [employer] but doesn't know the name. HR in triage had been 40s then resolved. He has been taking acetaminophen 2-3 times per day. No history chronic steroid use, IV drug use, or fevers. No incontinence of bowel or bladder. He does have a history prostate cancer. Related Data Home Medications ?Medication ?Instructions ?Recorded ?Confirmed ?Last Taken ?Type lisinopril 40 mg tablet 40 mg PO DAILY 04/04/19 08/13/24 08/12/24 History atorvastatin 10 mg tablet 10 mg PO DAILY 02/21/21 08/13/24 08/12/24 History diclofenac sodium 75 mg 75 mg PO BID PRN Pain 02/21/21 08/13/24 08/12/24 History tablet,delayed release hydrochlorothiazide 12.5 mg tablet 12.5 mg PO DAILY 02/21/21 08/13/24 08/12/24 History metformin 500 mg tablet 500 mg PO DAILY 02/21/21 08/13/24 08/12/24 History sertraline 100 mg tablet 100 mg PO DAILY 02/21/21 08/13/24 08/12/24 History trazodone 50 mg tablet 50 mg PO HS sleep 08/13/24 08/13/24 08/12/24 History Allergies Allergy/AdvReac Type Severity Reaction Status Date / Time No Known Allergies Allergy Verified 03/16/23 11:40 [facility] Past Medical History Medical History Chronic back pain Prostate CA Diabetes Obesity HTN (hypertension) KALLIE on CPAP Surgical History Surgical History H/O prostatectomy History of back surgery Social History Social History Smoking packs per day: 1 Smoking cigarettes per day: 20.0 Years smoked: 15 Smoking pack-years: 15.00 Smoking status: Former smoker Alcohol intake: current Drinks per week: 2 Alcohol use details: RARE Substance use: never Substance use type: does not use Other substance usage details: denies IVDU Do You Feel Safe in your Home?: Yes Lack of Transportation: No Lack of Food: Never True Current Housing: I Have Housing Concerned About Future Housing: No Difficulty Paying Gas/Electric Bills: No Difficulty Paying for Meds: No Currently Unemployed: No Education: Associate Degree Difficulty w/ Childcare or Family Care: No Living arrangements: with family Gender identity (if verbalized by the patient): Male Sexual Orientation (if Verbalized by the Patient): Straight or Heterosexual Spiritual care concerns: No Exam Narrative: GENERAL: well-nourished, in moderate acute distress. HEAD: Normocephalic, atraumatic. EYES: Non injected, non icteric ENT: Nares clear, no rhinorrhea or epistaxis. NECK: Supple. CHEST: Speaking in full sentences. No respiratory distress. HEART: Regular rate and rhythm, at times bradycardic. ABDOMEN: Obese but Soft, nondistended. EXTREMITIES: Normal range of motion. No lower extremity edema. SKIN: Warm, dry, no rash. Particularly no vesicular rash or erythema or ecchymosis in area where patient having pain and tenderness BACK: No malalignment/step offs of vertebral bodies. Well healed surgical scar. Patient has significant muscle spasms and TTP along left paraspinal muscles and more lateral and inferior to this. No NEURO: No focal deficits. Alert and oriented x3. Sensation intact to touch throughout bilateral lower extremities, symmetric. 5/5 strength with bilateral ankle dorsiflexion/plantar flexion, bilateral knee flexion/extension, bilateral hip flexion abduction adduction. PSYCH: Normal mood and affect. Course Vital Signs Vital signs: Vital Signs Temperature 98.8 F 08/12/24 19:53 Pulse Rate 64 08/12/24 19:53 Respiratory Rate 14 08/12/24 19:53 Blood Pressure 218/75 H 08/12/24 19:53 Pulse Oximetry 98 08/12/24 19:53 Oxygen Delivery Room Air 08/12/24 19:53 Temperature 97.6 F 08/13/24 14:00 Pulse Rate 58 L 08/13/24 14:00 Respiratory Rate 18 08/13/24 14:00 Blood Pressure 160/65 H 08/13/24 14:00 Pulse Oximetry 96 08/13/24 14:00 Oxygen Delivery Room Air 08/12/24 19:53 MDM - Back Pain/Injury MDM Narrative Medical decision making narrative: Patient presents with left-sided low back pain radiating into abdomen and left buttock. In the emergency department he is afebrile with vital signs notable for hypertension initially 218/75 but with improvement on repeat 156/64 without intervention. Back has no deformities, external skin changes, or signs of trauma. Curvature is within normal limits. No tenderness is noted on palpation of the spinous processes which are midline. Lumbar paraspinal muscles are however tender and are with spasm. Patient demonstrates flexion, extension of the lumbar spine. Sensation to the lower extremities is normal bilaterally. Dorsi/plantar flexion is normal bilaterally. They do not have any other red flags for infection (e.g. spinal epidural abscess): Age, no trauma, not on chronic steroids, no fever, IV drug use, immunosuppression, or urinary symptoms. However, given history of malignancy (prostate cancer), will obtain imaging, and to include CT Abd/pelvis given abdominal complaint with consideration of aortic/vascular etiology. CBC with anemia, no prior for comparison. Patient voided 220cc; PVR is 126cc. States initial Dilaudid did nothing for pain. Valium given. Reassessed and initially appears comfortable while sleeping but upon waking he is complaining of pain again, limited movements while in bed due to this. Patient declining other pain management modalities, Tylenol, ketorolac, lidocaine patches. Fentanyl given. Although no other red flag findings for cord compression/cauda equina other than the PVR >100, he continues to have intractable pain. Discussed with hospitalist for admission for MRI and pain control. NSGY contulation ordered but not discussed. 1 time dose of 16mg IV dexamethasone also ordered. Differential Diagnosis Differential diagnosis: Likely lumbar radiculopathy, sciatica, strain of lumbar region, renal colic, pyelonephritis, AAA, discitis and other (also considered cellulitis, shingles, etc. ) Lab Data Attestation: I reviewed the patient's lab results. Lab results narrative: Lactic acid, CMP unremarkable 08/12/24 21:15 08/12/24 21:15 Labs: Lab Results 08/12/24 08/12/24 Range/Units 21:15 22:40 WBC 7.1 (4.5-10.0) K/mm3 RBC 4.31 L (4.6-6.20) M/mm3 Hgb 12.8 L (14.0-18.0) g/dL Hct 39.3 L (42.0-52.0) % MCV 91.2 (80-100) fl MCH 29.7 (26-34) pg MCHC 32.6 (32-36) g/dl RDW 13.2 (11.5-14.5) % Plt Count 195 (150-375) k/mm3 MPV 9.7 (7.4-10.4) fl Immature Gran % (Auto) 0.4 (0-0.5) % Neut % (Auto) 60.9 (45.5-73.1) % Lymph % (Auto) 24.8 (18.3-44.2) % [place] % (Auto) 11.5 H (2.6-8.5) % Eos % (Auto) 1.7 (0-4.4) % Baso % (Auto) 0.7 (0.2-1.2) % Lymph # (Auto) 1.76 (0.9-3.2) K/mm3 [place] # (Auto) 0.8 H (0.1-0.6) K/mm3 Eos # (Auto) 0.1 (0-0.3) K/mm3 Baso # (Auto) 0.1 (0.0-0.1) K/mm3 Abs Immat Gran (auto) 0.03 (0.00-0.031) K/mm3 Absolute Neuts (auto) 4.3 (1.3-6.7) K/mm3 Absolute Nucleated RBC 0.000 (0.0-0.012) K/mm3 Nucleated RBC % 0.0 (0.0-0.2) % Sodium 137 (137-145) mmol/L Potassium 3.8 (3.4-5.0) mmol/L Chloride 102 (98-107) mmol/L Carbon Dioxide 27 (22-30) mmol/L Anion Gap 8 (4-12) mmol/L BUN 21 H (9-20) mg/dL Creatinine 1.16 (0.7-1.3) mg/dL Estim Creat Clear Calc 92 ml/min Estimated GFR > 60 (59 - ) Glucose 101 (65-110) mg/dL Lactic Acid 0.9 (0.7-2.0) mmol/L Calcium 9.2 (8.4-10.2) mg/dL Magnesium 1.9 (1.6-2.3) mg/dL Total Bilirubin 0.3 (0.2-1.3) mg/dL AST 27 (17-59) U/L ALT 27 (6-50) U/L Alkaline Phosphatase 114 (38-126) U/L Total Protein 7.0 (6.3-8.2) g/dL Albumin 4.2 (3.5-5.1) g/dL Urine Color Yellow (Yellow) Urine Appearance Clear (Clear) Urine pH 7.5 (5.0-9.0) Ur Specific [place] 1.034 (1.001-1.035) Urine Protein Negative (Negative) mg/dL Urine Glucose (UA) Negative (Negative) mg/dL Urine Ketones Trace H (Negative) mg/dL Ur Blood (Man) Negative (Negative) Urine Nitrate Negative (Negative) Urine Bilirubin Negative (Negative) Urine Urobilinogen 1.0 (<2.0) mg/dL Leukocyte Esterase Rfl Negative (Negative) LAMONTE/UL Imaging Data Radiologist's impression: IMPRESSION: Degenerative disease within the lower lumbar spine without lytic or blastic lesions within the visualized osseous structures. No acute findings within the abdomen or pelvis, as detailed above. Discharge Plan Discharge Clinical Impression: Normocytic anemia, Degenerative disc disease, lumbar, Muscle spasm of back Patient Disposition: Still a Patient Condition: Stable
[2024-08-12] MEDS: HYDROmorphone HCL INJ (*CRX) 1 MG/ML SYR IV PUSH (21:14)
[2024-08-12 21:22] LABS: Basophils Absolute Auto 0.1 K/mm3 (0.0-0.1); Basophils Percent Auto 0.7 % (0.2-1.2); Eosinophils Absolute Auto 0.1 K/mm3 (0-0.3); Eosinophils Percent Auto 1.7 % (0-4.4); Hematocrit 39.3 % (42.0-52.0); Hemoglobin 12.8 g/dL (14.0-18.0); Immature Granulocyte Absolute 0.03 K/mm3 (0.00-0.031); Immature Granulocyte Percent A 0.4 % (0-0.5); Lymphocytes Absolute Auto 1.76 K/mm3 (0.9-3.2); Lymphocytes Percent Auto 24.8 % (18.3-44.2); Mean Corpuscular HGB Conc 32.6 g/dl (32-36); Mean Corpuscular Hemoglobin 29.7 pg (26-34); Mean Corpuscular Volume 91.2 fl (80-100); Mean Platelet Volume 9.7 fl (7.4-10.4); Monocytes Absolute Auto 0.8 K/mm3 (0.1-0.6); Monocytes Percent Auto 11.5 % (2.6-8.5); Neutrophils Absolute Auto 4.3 K/mm3 (1.3-6.7); Neutrophils Percent Auto 60.9 % (45.5-73.1); Platelet Count Result 195 k/mm3 (150-375); Red Blood Count 4.31 M/mm3 (4.6-6.20); Red Cell Distribution Width 13.2 % (11.5-14.5); White Blood Count 7.1 K/mm3 (4.5-10.0)
[2024-08-12 21:31] VITALS: BP 153/75; RESP 17; O2SAT 96
[2024-08-12 21:31] LABS: Lactic Acid Reflex 0.9 mmol/L (0.7-2.0)
[2024-08-12 21:32] LABS: Alanine Aminotransferase 27 U/L (6-50); Albumin Level 4.2 g/dL (3.5-5.1); Alkaline Phosphatase 114 U/L (38-126); Anion Gap 8 mmol/L (4-12); Aspartate Amino Transferase 27 U/L (17-59); Bilirubin,Total 0.3 mg/dL (0.2-1.3); Blood Urea Nitrogen 21 mg/dL (9-20); Calcium 9.2 mg/dL (8.4-10.2); Carbon Dioxide 27 mmol/L (22-30); Chloride 102 mmol/L (98-107); Estimated CRCL calculation 92 ml/min; Estimated Glomerular Filt Rate > 60; Glucose 101 mg/dL (65-110); Magnesium 1.9 mg/dL (1.6-2.3); Potassium 3.8 mmol/L (3.4-5.0); Sodium 137 mmol/L (137-145)
--- NOTE | 2024-08-12 22:36 | PC.NURSE ---
per EDP Dodson, patient needs to void and have post void bladder scan. patient voided 225 mL urine and had 128 mL on post void scan.
[2024-08-12 22:52] LABS: Add Urine Microscopic? NO; Appearance Urine Clear (Clear); Bilirubin Urine Negative (Negative); Blood Urine Negative (Negative); Color Urine Yellow (Yellow); Glucose Urine UA Negative (Negative); Ketones Urine Trace mg/dL (Negative); Leukocyte Esterase Ur Negative LEU/UL (Negative); Nitrate Urine Negative (Negative); Protein Urine Negative (Negative); Specific Grav Ur 1.034 (1.001-1.035); pH Urine 7.5 (5.0-9.0)
[2024-08-12] MEDS: diazePAM INJ (*CRX) 10 MG/2 ML SYRINGE 5 MG IV PUSH (23:09)
[2024-08-12 23:17] VITALS: BP 161/74; PULSE 56; RESP 20; O2SAT 95
[2024-08-13] VITALS (10 sets, daily range): BP systolic 124–183; BP diastolic 59–95; PULSE 45–108; RESP 12–20; TEMP 36.3–37.4; O2SAT 96–99; BMI 36.3; BMI 36.6
[2024-08-13] MEDS: fentaNYL CITRATE INJ (*CRX) 100 MCG/2 ML VIAL 50 MCG IV PUSH (01:02)
[2024-08-13] MEDS: KETOROLAC 15 MG/ML VIAL (*BKC) IV PUSH (02:10)
[2024-08-13] MEDS: dexAMETHasone SOD PHOS INJ 10 MG/ML 1 ML VIAL 16 MG IV PUSH (02:11)
[2024-08-13] MEDS: HYDROmorphone HCL INJ (*CRX) 1 MG/ML SYR IV PUSH ×2 (03:47→09:29)
--- NOTE | 2024-08-13 03:58 | ADMGEN ---
This patient, Aditya Benitez, was admitted to [facility] Surg Room 321-02. Patient/family oriented to hospital policies and general routines including ID bracelet, bed and alarms, visiting hours, pain management, procedures, bathroom and other care routines, personal items, smoking policy, room service/diet, and visiting hours. Information on how to activate the Rapid Response Team has been discussed. Patient/Family are encouraged to report perceived risks to care and to ask questions if they do not understand what they are told or what they should do.
--- NOTE | 2024-08-13 06:02 | P.HP_ITS ---
H&P: HPI History of Present Illness Date/Time: 08/13/24 06:02 Chief Complaint: Back pain and spasms Narrative: A 58-year-old male with a history of chronic low back pain status post surgical intervention, prostate cancer, [id number] diabetes, obesity, KALLIE on CPAP, hypertension who presents to [place] [facility] complaint of refractory back pain worse than his usual. Hypertensive on arrival as well. He has been taking acetaminophen multiple times per day. Denies loss of bladder or bowel function, localized weakness, loss of sensation. He does report inability to walk due to severe pain. CT abdomen pelvis lumbar with contrast demonstrated nonobstructing fat and bowel containing umbilical and supraumbilical hernias, no lytic or blastic lesions, findings consistent with SISH, degenerative disease at level of L5-S1 with disc space narrowing endplate sclerosis, no acute fractures. Patient was given Dilaudid 1 mg IV x1 to no avail. Fentanyl IV 50 mcg IV x1 did help. Also given acetaminophen, Valium, Ketoralac, lidocaine, Decadron. Review of Systems Review of Systems: All systems reviewed & are unremarkable except as noted in HPI and below (HPI) [facility] Past Medical History Medical History Diabetes HTN (hypertension) Obesity KALLIE on CPAP Prostate CA Surgical History Surgical History H/O prostatectomy History of back surgery Social History Social History Smoking packs per day: 1 Smoking cigarettes per day: 20.0 Years smoked: 15 Smoking pack-years: 15.00 Smoking status: Former smoker Alcohol intake: current Drinks per week: 2 Alcohol use details: RARE Substance use: never Substance use type: does not use Do You Feel Safe in your Home?: Yes Lack of Transportation: No Lack of Food: Never True Current Housing: I Have Housing Concerned About Future Housing: No Difficulty Paying Gas/Electric Bills: No Difficulty Paying for Meds: No Currently Unemployed: No Education: Associate Degree Difficulty w/ Childcare or Family Care: No Living arrangements: with family Gender identity (if verbalized by the patient): Male Sexual Orientation (if Verbalized by the Patient): Straight or Heterosexual Spiritual care concerns: No Meds Home Medications and Allergies Home Medications ?Medication ?Instructions ?Recorded ?Confirmed ?Type lisinopril 40 mg tablet 40 mg PO DAILY 04/04/19 08/13/24 History atorvastatin 10 mg tablet 10 mg PO DAILY 02/21/21 08/13/24 History diclofenac sodium 75 mg 75 mg PO BID PRN Pain 02/21/21 08/13/24 History tablet,delayed release hydrochlorothiazide 12.5 mg tablet 12.5 mg PO DAILY 02/21/21 08/13/24 History metformin 500 mg tablet 500 mg PO DAILY 02/21/21 08/13/24 History sertraline 100 mg tablet 100 mg PO DAILY 02/21/21 08/13/24 History baclofen 10 mg tablet 10 mg PO TID PRN muscle pain #10 03/16/23 08/13/24 Rx tabs trazodone 50 mg tablet 50 mg PO HS sleep 08/13/24 08/13/24 History Allergies Allergy/AdvReac Type Severity Reaction Status Date / Time No Known Allergies Allergy Verified 03/16/23 11:40 Vital Signs Vital Signs - 24 hr 08/12/24 19:53 08/12/24 20:30 08/12/24 21:31 Temperature 98.8 F Pulse Rate 64 60 Respiratory Rate 14 20 17 Blood Pressure 218/75 H 156/64 H 153/75 H Pulse Oximetry 98 96 96 Oxygen Delivery Room Air 08/12/24 23:17 08/13/24 01:00 08/13/24 03:00 Temperature Pulse Rate 56 L 53 L 47 L Respiratory Rate 20 12 20 Blood Pressure 161/74 H 124/59 L 146/63 H Pulse Oximetry 95 97 99 Oxygen Delivery 08/13/24 03:37 Temperature 97.6 F Pulse Rate 45 L Respiratory Rate 18 Blood Pressure 159/63 H Pulse Oximetry 98 Oxygen Delivery Exam Narrative: No bony abnormalities of the lumbar spine Const: General: comfortable and no acute distress Other: A&O x3 HENMT: Mouth: Yes moist mucous membranes Eyes: Pupils: Equal, round and reactive pupils present Neck: Neck: supple Resp: Effort & Inspection: normal respiratory effort Auscultation: clear to auscultation bilaterally Cardio: Rate: regular rate Rhythm: regular rhythm GI: GI Palp: Yes Soft to palpation and No Tenderness to palpation present (GI) Other: Protuberant abdomen : General: Yes bladder normal to palpation Neuro: Speech: normal speech Motor exam (neuro): 5/5 motor strength present throughout Sensory Exam: normal sensation Extrem: General: no edema H&P: Results Labs Labs: Short CBC 08/12/24 Range/Units 21:15 WBC 7.1 (4.5-10.0) K/mm3 Hgb 12.8 L (14.0-18.0) g/dL Hct 39.3 L (42.0-52.0) % Plt Count 195 (150-375) k/mm3 BMP 08/12/24 21:15 Sodium 137 Potassium 3.8 Chloride 102 Carbon Dioxide 27 BUN 21 H Creatinine 1.16 Glucose 101 Calcium 9.2 Liver Function 08/12/24 Range/Units 21:15 Total Bilirubin 0.3 (0.2-1.3) mg/dL AST 27 (17-59) U/L ALT 27 (6-50) U/L Alkaline Phosphatase 114 (38-126) U/L Albumin 4.2 (3.5-5.1) g/dL Urine 08/12/24 Range/Units 22:40 Urine Color Yellow (Yellow) Urine Appearance Clear (Clear) Urine pH 7.5 (5.0-9.0) Ur Specific [place] 1.034 (1.001-1.035) Urine Protein Negative (Negative) mg/dL Urine Glucose (UA) Negative (Negative) mg/dL Assessment and Plan Assessment and plan (1) Obesity: Qualifiers: Obesity type: due to excess calories Obesity classification: adult class 2 (BMI 35 - 39.9) Serious obesity comorbidity presence: unspecified whether serious comorbidity present Body mass index: BMI 38.0-38.9 Qualified Code(s): E66.09 - Other obesity due to excess calories; Z68.38 - Body mass index [BMI] 38.0-38.9, adult Code(s): E66.9 - Obesity, unspecified Status: Acute (2) Muscle spasm of back: Code(s): M62.830 - Muscle spasm of back Status: Acute (3) Degenerative disc disease, lumbar: Code(s): M51.369 - Other intervertebral disc degeneration, lumbar region without mention of lumbar back pain or lower extremity pain Status: Acute Plan A 58-year-old male with a history of chronic low back pain status post surgical intervention, prostate cancer, [id number] diabetes, obesity, KALLIE on CPAP, hypertension who presents to [place] ER complaint of refractory back pain worse than his usual. Hypertensive on arrival as well. He has been taking acetaminophen multiple times per day. Denies loss of bladder or bowel function, localized weakness, loss of sensation. He does report inability to walk due to severe pain. CT abdomen pelvis lumbar with contrast demonstrated nonobstructing fat and bowel containing umbilical and supraumbilical hernias, no lytic or blastic lesions, findings consistent with SISH, degenerative disease at level of L5-S1 with disc space narrowing endplate sclerosis, no acute fractures. Patient was given Dilaudid 1 mg IV x1 to no avail. Fentanyl IV 50 mcg IV x1 did help. Also given acetaminophen, Valium, Ketoralac, lidocaine, Decadron. ----- MRI of lumbar spine and Neurosurgery consultation ordered. Patient currently resting comfortably and blood pressure has improved. Reordered [employer] baclofen. Otherwise continue pain management with Dilaudid and ketorolac p.r.n.. CPAP ordered. ----- Full code. PT OT evaluations.
--- NOTE | 2024-08-13 08:00 | PM.IMPN ---
Progress Note: A&P Assessment and Plan (1) Obesity: Qualifiers: Body mass index: BMI 38.0-38.9 Obesity classification: adult class 2 (BMI 35 - 39.9) Obesity type: due to excess calories Serious obesity comorbidity presence: unspecified whether serious comorbidity present Qualified Code(s): E66.09 - Other obesity due to excess calories; Z68.38 - Body mass index [BMI] 38.0-38.9, adult Code(s): E66.9 - Obesity, unspecified Status: Acute Assessment and Plan: Lifestyle modification (2) Muscle spasm of back: Code(s): M62.830 - Muscle spasm of back Status: Acute Assessment and Plan: Pain medication (3) Degenerative disc disease, lumbar: Code(s): M51.369 - Other intervertebral disc degeneration, lumbar region without mention of lumbar back pain or lower extremity pain Status: Acute Plan Refractory back pain MRI of lumbar spine pending Continue pain medication, baclofen Neurosurgery has been consulted PT OT Continue to monitor Uncontrolled hypertension Lisinopril, HCTZ HLD Status DM 2 SSI and 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 Depression/insomnia Sertraline, trazodone First-degree AV block Telemonitoring ----- Full code. PT OT evaluations. Subjective Date/time seen: 08/13/24 08:00 Interval history: per HPI: A 58-year-old male with a history of chronic low back pain status post surgical intervention, prostate cancer, [id number] diabetes, obesity, CORY on CPAP, hypertension who presents to [place] ER complaint of refractory back pain worse than his usual. Hypertensive on arrival as well. He has been taking acetaminophen multiple times per day. Denies loss of bladder or bowel function, localized weakness, loss of sensation. He does report inability to walk due to severe pain. CT abdomen pelvis lumbar with contrast demonstrated nonobstructing fat and bowel containing umbilical and supraumbilical hernias, no lytic or blastic lesions, findings consistent with SISH, degenerative disease at level of L5-S1 with disc space narrowing endplate sclerosis, no acute fractures. Patient was given Dilaudid 1 mg IV x1 to no avail. Fentanyl IV 50 mcg IV x1 did help. Also given acetaminophen, Valium, Ketoralac, lidocaine, Decadron 08/13/24 Patient was seen and examined bedside. He is feeling better when he is not moving. Pain at rest is 2/ 10 and with activity he has severe pain shooting to the left leg. Lab tests showed WBC 7.1, hemoglobin 12.8, sodium 137, potassium 3.8 CT showed:There are bridging endplate osteophytes at multiple levels in the spine, consistent with diffuse idiopathic skeletal hyperostosis (DISH).Only trace degenerative disease at the level of L5/S1 with disc space narrowing and endplate sclerosis. MRI pending Neurosurgery has been consulted EKG showed bradycardia with first-degree block. Continue to monitor Review of Systems Review of Systems: All systems reviewed & are unremarkable except as noted in HPI and below (HPI) Exam Narrative: No bony abnormalities of the lumbar spine Const: General: comfortable and no acute distress Other: A&O x3 HENMT: Mouth: Yes moist mucous membranes Eyes: Pupils: Equal, round and reactive pupils present Neck: Neck: supple Resp: Effort & Inspection: normal respiratory effort Auscultation: clear to auscultation bilaterally Cardio: Rate: regular rate Rhythm: regular rhythm GI: Other: Protuberant abdomen : General: Yes bladder normal to palpation Neuro: Cranial nerves: Yes Equal, round and reactive pupils present Speech: normal speech Motor exam (neuro): 5/5 motor strength present throughout Sensory Exam: normal sensation Extrem: General: no edema Objective Data Vital Signs Vital Signs: Vital Signs - 24 hr 08/12/24 19:53 08/12/24 20:30 08/12/24 21:31 Temperature 98.8 F Pulse Rate 64 60 Respiratory Rate 14 20 17 Blood Pressure 218/75 H 156/64 H 153/75 H Pulse Oximetry 98 96 96 Oxygen Delivery Room Air 08/12/24 23:17 08/13/24 01:00 08/13/24 03:00 Temperature Pulse Rate 56 L 53 L 47 L Respiratory Rate 20 12 20 Blood Pressure 161/74 H 124/59 L 146/63 H Pulse Oximetry 95 97 99 Oxygen Delivery 08/13/24 03:37 08/13/24 05:40 Temperature 97.6 F 99.4 F Pulse Rate 45 L 108 H Respiratory Rate 18 18 Blood Pressure 159/63 H 183/95 H Pulse Oximetry 98 98 Oxygen Delivery Intake/Output Intake/Output: Intake & Output 08/10/24 08/11/24 08/12/24 08/13/24 23:59 23:59 23:59 23:59 Intake Total 550 Balance 550 Meds/Results Medications: Active Medications Generic Name Dose Route Start Last Admin Trade Name Freq PRN Reason Stop Dose Admin Acetaminophen 650 mg 08/13/24 01:59 Acetaminophen 325 Mg Tablet PO Q4H PRN Mild Pain (1-3) or Fever Atorvastatin Calcium 10 mg 08/13/24 09:00 Atorvastatin 10 Mg Tablet PO DAILY [facility] Baclofen 10 mg 08/13/24 06:01 Baclofen 10 Mg Tablet PO TID PRN muscle pain Hydrochlorothiazide 12.5 mg 08/13/24 09:00 Hydrochlorothiazide 12.5 Mg Capsule PO DAILY [facility] Hydromorphone HCl 1 mg 08/13/24 01:59 08/13/24 03:47 Hydromorphone Hcl Inj (*Crx) 1 Mg/Ml Syr IV PUSH 1 mg Q4H PRN Administration Pain Rated 7-10 Ketorolac Tromethamine 30 mg 08/13/24 01:59 Ketorolac 30 Mg/Ml Vial (*Bkc) IV PUSH 08/18/24 01:58 Q6H PRN Pain Rated 4-6 Lisinopril 40 mg 08/13/24 09:00 Lisinopril 20 Mg Tablet PO DAILY [facility] Ondansetron HCl 4 mg 08/13/24 01:59 Ondansetron Inj 4 Mg/2 Ml Vial IV PUSH Q4H PRN Nausea Sertraline HCl 100 mg 08/13/24 09:00 Sertraline Hcl 50 Mg Tablet PO DAILY [facility] Trazodone HCl 50 mg 08/13/24 21:00 Trazodone Hcl 50 Mg Tablet PO [facility] Radiology Results: ITS Impressions Miscellaneous CT Procedure 08/12/24 22:07 IMPRESSION: Degenerative disease within the lower lumbar spine without lytic or blastic lesions within the visualized osseous structures. No acute findings within the abdomen or pelvis, as detailed above. Labs Labs: Laboratory Results - last 24 hr 08/12/24 08/12/24 21:15 22:40 WBC 7.1 RBC 4.31 L Hgb 12.8 L Hct 39.3 L MCV 91.2 MCH 29.7 MCHC 32.6 RDW 13.2 Plt Count 195 MPV 9.7 Immature Gran % (Auto) 0.4 Neut % (Auto) 60.9 Lymph % (Auto) 24.8 [place] % (Auto) 11.5 H Eos % (Auto) 1.7 Baso % (Auto) 0.7 Lymph # (Auto) 1.76 [place] # (Auto) 0.8 H Eos # (Auto) 0.1 Baso # (Auto) 0.1 Abs Immat Gran (auto) 0.03 Absolute Neuts (auto) 4.3 Absolute Nucleated RBC 0.000 Nucleated RBC % 0.0 Sodium 137 Potassium 3.8 Chloride 102 Carbon Dioxide 27 Anion Gap 8 BUN 21 H Creatinine 1.16 Estim Creat Clear Calc 92 Estimated GFR > 60 Glucose 101 Lactic Acid 0.9 Calcium 9.2 Magnesium 1.9 Total Bilirubin 0.3 AST 27 ALT 27 Alkaline Phosphatase 114 Total Protein 7.0 Albumin 4.2 Urine Color Yellow Urine Appearance Clear Urine pH 7.5 Ur Specific [place] 1.034 Urine Protein Negative Urine Glucose (UA) Negative Urine Ketones Trace H Ur Blood (Man) Negative Urine Nitrate Negative Urine Bilirubin Negative Urine Urobilinogen 1.0 Leukocyte Esterase Rfl Negative
[2024-08-13] MEDS: lisinopriL 20 MG TABLET 40 MG PO (09:28)
[2024-08-13] MEDS: ATORVASTATIN 10 MG TABLET PO (09:28)
[2024-08-13] MEDS: hydroCHLOROthiazide 12.5 MG CAPSULE PO (09:29)
[2024-08-13] MEDS: SERTRALINE HCL 50 MG TABLET 100 MG PO (09:29)
--- NOTE | 2024-08-13 09:41 | ECG_ITS ---
Test Date: 2024-08-13 10:24:45 Measurements Intervals [place] Rate: 46 P: 56 MA: 314 QRS: 16 QRSD: 107 T: 4 QT: 451 QTc: 399 Interpretive Statements SINUS BRADYCARDIA WITH FIRST DEGREE AV BLOCK WITH OCCASIONAL VENTRICULAR PREMATURE COMPLEXES BORDERLINE T WAVE ABNORMALITY- INFERIOR LEADS ABNORMAL ECG No previous ECG available for comparison Electronically Signed On 08-13-2024 14:46:56 CDT by Andrew Doss D.O.
[2024-08-13] MEDS: ALPRAZolam (*CRX) 0.5 MG TABLET PO (10:57)
[2024-08-13] MEDS: PANTOPRAZOLE 40 MG TABLET PO (13:18)
[2024-08-13] MEDS: KETOROLAC 30 MG/ML VIAL (*BKC) IV PUSH (17:09)
[2024-08-13] MEDS: BACLOFEN 10 MG TABLET PO (18:07)
[2024-08-13] MEDS: traZODone HCL 50 MG TABLET PO (21:01)
[2024-08-13] MEDS: FAMOTIDINE 20 MG TABLET PO (22:21)
[2024-08-14] VITALS (7 sets, daily range): BP systolic 116–130; BP diastolic 47–60; PULSE 38–57; RESP 18; TEMP 36.5; O2SAT 94–99
[2024-08-14] MEDS: KETOROLAC 30 MG/ML VIAL (*BKC) IV PUSH ×2 (03:46→10:13)
--- NOTE | 2024-08-14 04:19 | ECG_ITS ---
Test Date: 2024-08-14 04:28:05 Measurements Intervals [place] Rate: 39 P: 7 WI: 322 QRS: 23 QRSD: 112 T: -12 QT: 499 QTc: 403 Interpretive Statements SINUS BRADYCARDIA WITH MARKED FIRST DEGREE AV BLOCK INTRAVENTRICULAR CONDUCTION DELAY DELAYED PRECORDIAL R/S TRANSITION ABNORMAL ECG Compared to ECG 08/13/2024 10:24:45 HEART RATE HAS DECREASED Electronically Signed On 08-14-2024 07:39:57 CDT by Andrew Doss D.O.
[2024-08-14 06:11] LABS: Hematocrit 38.1 % (42.0-52.0); Hemoglobin 12.6 g/dL (14.0-18.0); Mean Corpuscular HGB Conc 33.1 g/dl (32-36); Mean Corpuscular Hemoglobin 29.9 pg (26-34); Mean Corpuscular Volume 90.3 fl (80-100); Mean Platelet Volume 9.5 fl (7.4-10.4); Platelet Count Result 177 k/mm3 (150-375); Red Blood Count 4.22 M/mm3 (4.6-6.20); Red Cell Distribution Width 13.1 % (11.5-14.5); White Blood Count 7.9 K/mm3 (4.5-10.0)
[2024-08-14 06:22] LABS: Anion Gap 7 mmol/L (4-12); Blood Urea Nitrogen 22 mg/dL (9-20); Calcium 8.8 mg/dL (8.4-10.2); Carbon Dioxide 27 mmol/L (22-30); Chloride 103 mmol/L (98-107); Estimated CRCL calculation 117 ml/min; Estimated Glomerular Filt Rate > 60; Glucose 112 mg/dL (65-110); Potassium 3.7 mmol/L (3.4-5.0); Sodium 137 mmol/L (137-145)
[2024-08-14] MEDS: ATORVASTATIN 10 MG TABLET PO (10:05)
[2024-08-14] MEDS: PANTOPRAZOLE 40 MG TABLET PO (10:05)
[2024-08-14] MEDS: hydroCHLOROthiazide 12.5 MG CAPSULE PO (10:05)
[2024-08-14] MEDS: lisinopriL 20 MG TABLET 40 MG PO (10:05)
[2024-08-14] MEDS: FAMOTIDINE 20 MG TABLET PO (10:05)
[2024-08-14] MEDS: SERTRALINE HCL 50 MG TABLET 100 MG PO (10:06)
[2024-08-14] MEDS: LIDOCAINE 5% PATCH 1 PATCH TRANSDERM (10:13)
--- NOTE | 2024-08-14 13:31 | PM.CNCAR ---
Assessment and Plan Assessment and plan (1) Muscle spasm of back: Code(s): M62.830 - Muscle spasm of back Status: Acute Plan 58-year-old man presenting with severe chronic back pain which has been improved with analgesic medication. He has asymptomatic sinus bradycardia and asymptomatic first-degree AV block. These are not related to his chief complaint her reason for coming into the hospital less possibly he is having a vagal response to severe back pain. In any event I spoke to the patient and his in significant detail the today about sinus node any dysfunction and the reasons for which a pacemaker device would have to be implanted. I reassured them that nothing such as that is indicated at this time. He can follow-up with his PCP was managing his hypertension who is certainly more than adequate monitor this he does not need to follow up in our office for asymptomatic sinus bradycardia in my opinion Victor Manuel Johnson MD [facility] History of Present Illness History of Present Illness Consult date/time: 08/14/24 13:31 Reason For Visit: intractable back pain Narrative: This is a 58-year-old man I am seeing at the request of the hospitalist because of sinus bradycardia. He is not known to me prior to this consultation and he is not aware of any cardiac problems prior to this. He is a gentleman that has a history of hypertension and chronic back pain. He has had 2 previous back operations and states that at times he has severe pain and low back spasms and he came into the emergency room here last evening with severe intractable back pain requiring analgesic medication. He has been treated accordingly and says he feels much better today and the physicians would like to discharge him home today. Since he has been in the hospital he has been placed on telemetry and he has had 2 EKGs done. Both EKG show it is of sinus bradycardia with first-degree AV block. The history of syncope or near-syncope he denies any exertional symptoms such as dyspnea or chest pain he is not experiencing orthopnea PND or acute edema. His primary care physician is down in [place] who has him on lisinopril for hypertension. He is taking no medications that would affect AV node or SA node physiology. Review of Systems Constitutional: Constitutional: Reports no additional constitutional complaints Eyes: Eyes: Reports no additional eye complaints ENT: Reports system reviewed and no additional complaints, except as documented Cardiovascular: Cardiovascular: Reports no additional cardiovascular complaints Respiratory: Respiratory: Reports no additional respiratory complaints Gastrointestinal: Gastrointestinal: Reports no additional gastrointestinal complaints Musculoskeletal: Musculoskeletal: Reports as per HPI and Reports back pain Integumentary/Breasts: Skin/Breast: Reports system reviewed and no additional complaints, except as docu Neurologic: Reports system reviewed and no additional complaints, except as documented Endocrine: Endocrine: Reports no additional endocrine complaints Hematologic/Lymphatic: Hematologic/Lymphatic: Reports no additional hematologic/lymphatic complaints Allergic/Immunologic: Allergic/Immunologic: Reports no additional allergic/immunologic complaints [facility] Past Medical History Medical History Chronic back pain Prostate CA Diabetes Obesity HTN (hypertension) KALLIE on CPAP Surgical History Surgical History H/O prostatectomy History of back surgery Social History Social History (Updated 08/13/24 @ 17:36 by Milly Dodson MD) Smoking packs per day: 1 Smoking cigarettes per day: 20.0 Years smoked: 15 Smoking pack-years: 15.00 Smoking status: Former smoker Alcohol intake: current Drinks per week: 2 Alcohol use details: RARE Substance use: never Substance use type: does not use Other substance usage details: denies IVDU Do You Feel Safe in your Home?: Yes Lack of Transportation: No Lack of Food: Never True Current Housing: I Have Housing Concerned About Future Housing: No Difficulty Paying Gas/Electric Bills: No Difficulty Paying for Meds: No Currently Unemployed: No Education: Associate Degree Difficulty w/ Childcare or Family Care: No Living arrangements: with family Gender identity (if verbalized by the patient): Male Sexual Orientation (if Verbalized by the Patient): Straight or Heterosexual Spiritual care concerns: No Meds Home Medications and Allergies Home Medications ?Medication ?Instructions ?Recorded ?Confirmed ?Type lisinopril 40 mg tablet 40 mg PO DAILY 04/04/19 08/13/24 History atorvastatin 10 mg tablet 10 mg PO DAILY 02/21/21 08/13/24 History diclofenac sodium 75 mg 75 mg PO BID PRN Pain 02/21/21 08/13/24 History tablet,delayed release hydrochlorothiazide 12.5 mg tablet 12.5 mg PO DAILY 02/21/21 08/13/24 History metformin 500 mg tablet 500 mg PO DAILY 02/21/21 08/13/24 History sertraline 100 mg tablet 100 mg PO DAILY 02/21/21 08/13/24 History baclofen 10 mg tablet 10 mg PO TID PRN muscle pain #10 03/16/23 08/13/24 Rx tabs trazodone 50 mg tablet 50 mg PO HS sleep 08/13/24 08/13/24 History Allergies Allergy/AdvReac Type Severity Reaction Status Date / Time No Known Allergies Allergy Verified 03/16/23 11:40 Vital Signs Vital Signs - 24 hr 08/13/24 14:00 08/13/24 16:01 08/13/24 20:02 Temperature 36.4 C Pulse Rate 58 L 67 49 L Respiratory Rate 18 Blood Pressure 160/65 H Pulse Oximetry 96 Oxygen Delivery Oxygen Flow Rate 08/13/24 21:00 08/13/24 21:22 08/14/24 00:02 Temperature 36.3 C L Pulse Rate 50 L 43 L Respiratory Rate 18 Blood Pressure 137/63 Pulse Oximetry 98 98 Oxygen Delivery Nasal Cannula Oxygen Flow Rate 2 08/14/24 04:02 08/14/24 05:41 08/14/24 08:01 Temperature 36.5 C Pulse Rate 38 L 40 L 38 L Respiratory Rate 18 Blood Pressure 116/47 L Pulse Oximetry 99 Oxygen Delivery Oxygen Flow Rate 08/14/24 08:30 08/14/24 08:55 08/14/24 11:14 Temperature Pulse Rate Respiratory Rate Blood Pressure Pulse Oximetry 94 Oxygen Delivery Room Air Room Air Room Air Oxygen Flow Rate 08/14/24 11:40 Temperature Pulse Rate Respiratory Rate Blood Pressure Pulse Oximetry Oxygen Delivery Room Air Oxygen Flow Rate Exam Const: General: comfortable and no acute distress Other: Very pleasant obese man sitting in the chair visiting with no distress at this time HENMT: Mouth: Yes moist mucous membranes Eyes: Sclera: sclerae normal Neck: Neck: supple and no JVD Resp: Effort & Inspection: normal respiratory effort Auscultation: clear to auscultation bilaterally Cardio: Rate: bradycardic Rhythm: regular rhythm GI: GI Palp: Yes Soft to palpation Auscultation: normal bowel sounds Skin: General skin exam: normal color Neuro: Other: Alert and oriented x3 Extrem: Other: Normal perfusion Results Labs and Meds 08/14/24 06:02 08/14/24 06:02 Lab results: CBC 08/14/24 Range/Units 06:02 WBC 7.9 (4.5-10.0) K/mm3 RBC 4.22 L (4.6-6.20) M/mm3 Hgb 12.6 L (14.0-18.0) g/dL Hct 38.1 L (42.0-52.0) % Plt Count 177 (150-375) k/mm3 Comprehensive Metabolic Panel 08/14/24 Range/Units 06:02 Sodium 137 (137-145) mmol/L Potassium 3.7 (3.4-5.0) mmol/L Chloride 103 (98-107) mmol/L Carbon Dioxide 27 (22-30) mmol/L BUN 22 H (9-20) mg/dL Creatinine 0.90 (0.7-1.3) mg/dL Glucose 112 H (65-110) mg/dL Calcium 8.8 (8.4-10.2) mg/dL Intake and Output 08/13/24 08/14/24 08/14/24 23:59 07:59 15:59 Intake Total 120 550 480 Balance 120 550 480 Intake: Oral 120 550 480 Other: # Unmeasured Voids 2 2
--- NOTE | 2024-08-14 14:06 | PM.DS ---
DS: Admitting Diagnosis Discharge Date 08/14/24 Admitting Diagnosis back pain DS: Discharge Diagnosis Discharge Diagnosis (1) Obesity: Qualifiers: Obesity type: due to excess calories Obesity classification: adult class 2 (BMI 35 - 39.9) Serious obesity comorbidity presence: unspecified whether serious comorbidity present Body mass index: BMI 38.0-38.9 Qualified Code(s): E66.09 - Other obesity due to excess calories; Z68.38 - Body mass index [BMI] 38.0-38.9, adult Code(s): E66.9 - Obesity, unspecified Status: Acute Assessment and Plan: Lifestyle modification (2) Muscle spasm of back: Code(s): M62.830 - Muscle spasm of back Status: Acute Assessment and Plan: Pain medication (3) Degenerative disc disease, lumbar: Code(s): M51.369 - Other intervertebral disc degeneration, lumbar region without mention of lumbar back pain or lower extremity pain Status: Acute Plan Refractory back pain MRI of lumbar spine pending Continue pain medication, baclofen PT OT Continue to monitor Uncontrolled hypertension Lisinopril, HCTZ HLD Status DM 2 SSI and Accu-Chek Obesity Lifestyle modification kallie CPAP ordered. Depression/insomnia Sertraline, trazodone First-degree AV block no intervention per cardiology alayna vasovagal Telemonitoring ----- Full code. PT OT evaluations. DS: Summary Hospital Course Hospital Course: per HPI: A 58-year-old male with a history of chronic low back pain status post surgical intervention, prostate cancer, [id number] diabetes, obesity, KALLIE on CPAP, hypertension who presents to [facility] complaint of refractory back pain worse than his usual. Hypertensive on arrival as well. He has been taking acetaminophen multiple times per day. Denies loss of bladder or bowel function, localized weakness, loss of sensation. He does report inability to walk due to severe pain. CT abdomen pelvis lumbar with contrast demonstrated nonobstructing fat and bowel containing umbilical and supraumbilical hernias, no lytic or blastic lesions, findings consistent with SISH, degenerative disease at level of L5-S1 with disc space narrowing endplate sclerosis, no acute fractures. Patient was given Dilaudid 1 mg IV x1 to no avail. Fentanyl IV 50 mcg IV x1 did help. Also given acetaminophen, Valium, Ketoralac, lidocaine, Decadron 08/13/24 Patient was seen and examined bedside. He is feeling better when he is not moving. Pain at rest is 2/ 10 and with activity he has severe pain shooting to the left leg. CT showed:There are bridging endplate osteophytes at multiple levels in the spine, consistent with diffuse idiopathic skeletal hyperostosis (DISH).Only trace degenerative disease at the level of L5/S1 with disc space narrowing and endplate sclerosis. MRI Mild lumbar spondylosis change of prior right hemilaminotomy at L5-S1. EKG showed bradycardia with first-degree block. 08/14/24 The patient was seen and evaluated. He is feeling better. Back pain is better. Denies any chest pain, shortness off breath, nausea vomiting. Patient had episode of bradycardia this morning. EKG showed first-degree AV block. Cardiology was consulted. Likely reason for call the setting of back pain. No intervention needed patient needs follow with PCP as outpatient. Status at Discharge Overall status at discharge: patient is progressing back to baseline Time Spent with Patient Time attestation: Total time spent providing and/or coordinating discharge services: Time spent: Greater than 30 minutes Exam Narrative: No bony abnormalities of the lumbar spine Const: General: comfortable and no acute distress Other: A&O x3 HENMT: Mouth: Yes moist mucous membranes Eyes: Pupils: Equal, round and reactive pupils present Neck: Neck: supple Resp: Effort & Inspection: normal respiratory effort Auscultation: clear to auscultation bilaterally Cardio: Rate: regular rate Rhythm: regular rhythm GI: Other: Protuberant abdomen : General: Yes bladder normal to palpation Neuro: Cranial nerves: Yes Equal, round and reactive pupils present Speech: normal speech Motor exam (neuro): 5/5 motor strength present throughout Sensory Exam: normal sensation Extrem: General: no edema DS: Data Data Completed and Pending Labs on day of discharge: Labs from last 24 hours 08/14/24 06:02 WBC 7.9 RBC 4.22 L Hgb 12.6 L Hct 38.1 L MCV 90.3 MCH 29.9 MCHC 33.1 RDW 13.1 Plt Count 177 MPV 9.5 Sodium 137 Potassium 3.7 Chloride 103 Carbon Dioxide 27 Anion Gap 7 BUN 22 H Creatinine 0.90 Estim Creat Clear Calc 117 Estimated GFR > 60 Glucose 112 H Calcium 8.8 Magnesium 2.0 Discharge Plan Discharge Consulting providers: Lani Perales; Victor Manuel Johnson Activity: as tolerated Diet: heart healthy Discharge Instructions: Follow with PCP other Follow with pain management as needed Check your blood pressure and heart rate regularly and report to PCP Patient Language: Vincentian Discharge Medications: New lidocaine [Lidoderm] 5 % Adhesive Patch,Medicated 1 patch transdermal DAILY Qty: 10 1RF ketorolac 10 mg tablet 10 mg PO Q6H PRN (Reason: pain) Qty: 20 0RF Rx Instructions: maximum total duration of 5 days from all oral, intranasal, or parenteral formulations Continued baclofen 10 mg tablet 10 mg PO TID PRN (Reason: muscle pain) Qty: 10 0RF lisinopril 40 mg tablet 40 mg PO DAILY metformin 500 mg Tablet 500 mg PO DAILY atorvastatin 10 mg Tablet 10 mg PO DAILY sertraline 100 mg Tablet 100 mg PO DAILY hydrochlorothiazide 12.5 mg Tablet 12.5 mg PO DAILY trazodone 50 mg tablet 50 mg PO HS Discontinued diclofenac sodium 75 mg Tablet,Delayed Release (Dr/Ec) 75 mg PO BID PRN (Reason: Pain) Date of admission: 08/13/24 01:59 Primary Care Provider: Roque,Victor Manuel Moseley Jr. Admitting Provider: Shereen Preciado Attending physician on admission: Shayna Pastor Condition: Stable
== END 2024-08-14 15:00 | disposition home or self-care (01) ==
LOC: ANHED 08-13 01:58 → ANH3MEDSUR 08-13 02:40
PROVIDERS: Admitting Provider General Practice; Emergency Provider Student in an Organized Health Care Education/Training Program; PCP Hospitalist; Visit Provider Internal Medicine
DX: M62.830 Muscle spasm of back (principal); M51.369 Other intervertebral disc degeneration, lumbar region without mention of lumbar back pain or lower extremity pain; G89.29 Other chronic pain; I10 Essential (primary) hypertension; E78.5 Hyperlipidemia, unspecified; E11.9 Type 2 diabetes mellitus without complications; E66.812 Obesity, class 2; Z68.36 Body mass index [BMI] 36.0-36.9, adult; G47.33 Obstructive sleep apnea (adult) (pediatric); F32.A Depression, unspecified; G47.00 Insomnia, unspecified; I44.0 Atrioventricular block, first degree; R00.1 Bradycardia, unspecified; D64.9 Anemia, unspecified; Z99.89 Dependence on other enabling machines and devices; Z79.84 Long term (current) use of oral hypoglycemic drugs; Z79.899 Other long term (current) drug therapy; Z85.46 Personal history of malignant neoplasm of prostate; Z87.891 Personal history of nicotine dependence; Z98.890 Other specified postprocedural states
CPT/HCPCS: 36415; 72132; 72158; 74177; 80048; 80053; 81003; 83605; 83735; 85025; 85027; 93005; 96374; 96375; 96376; 97161; 97165; 99285; A9270; A9579; G0378; J1100; J1171; J1885; J3010; J3360; Q9967